=== PATIENT | female | born 1970 | race Caucasian/White ===

== ENCOUNTER 2019-07-23 14:13 | Outpatient (CLI) | payer OTHER, SELFPAY ==
[2019-07-23 16:24] LABS: Basophils Absolute Auto 0.1 K/mm3 (0.0-0.1); Basophils Percent Auto 0.7 % (0.2-1.2); Eosinophils Absolute Auto 0.2 K/mm3 (0-0.3); Eosinophils Percent Auto 2.2 % (0-4.4); Hematocrit 38.1 % (37.0-47.0); Hemoglobin 12.5 g/dL (12.0-15.0); Immature Granulocyte Absolute 0.03 K/mm3 (0.00-0.031); Immature Granulocyte Percent A 0.3 % (0-0.5); Lymphocytes Absolute Auto 3.03 K/mm3 (0.9-3.2); Lymphocytes Percent Auto 31.1 % (18.3-44.2); Mean Corpuscular HGB Conc 32.8 g/dl (32-36); Mean Corpuscular Hemoglobin 31.3 pg (26-34); Mean Corpuscular Volume 95.5 fl (80-100); Mean Platelet Volume 10.7 fl (7.4-10.4); Monocytes Absolute Auto 0.7 K/mm3 (0.1-0.6); Monocytes Percent Auto 7.2 % (2.6-8.5); Neutrophils Absolute Auto 5.7 K/mm3 (1.3-6.7); Neutrophils Percent Auto 58.5 % (45.5-73.1); Platelet Count Result 352 k/mm3 (150-375); Red Blood Count 3.99 M/mm3 (4.2-5.4); Red Cell Distribution Width 13.6 % (11.5-14.5); White Blood Count 9.8 K/mm3 (4.5-10.0)
[2019-07-23 16:34] LABS: Hemoglobin A1C 5.2 % (<5.7)
[2019-07-23 16:39] LABS: Alanine Aminotransferase 22 U/L (4-35); Albumin Level 3.6 g/dL (3.5-5.1); Alkaline Phosphatase 49 U/L (38-126); Aspartate Amino Transferase 15 U/L (14-36); Bilirubin,Total 0.2 mg/dL (0.2-1.3); Blood Urea Nitrogen 13 mg/dL (7-17); Calcium 8.3 mg/dL (8.4-10.2); Carbon Dioxide 27 mmol/L (22-30); Chloride 103 mmol/L (98-107); Estimated Glomerular Filt Rate > 60; Glucose 84 mg/dL (65-105); Potassium 3.7 mmol/L (3.4-5.0); Sodium 136 mmol/L (137-145)
[2019-07-23 16:46] LABS: Immunoglobulin A 130 mg/dL (70-400); Immunoglobulin G 499 mg/dL (700-1600)
[2019-07-23 16:58] LABS: Immunoglobulin M < 25 mg/dL (40-230)
[2019-07-23 17:09] LABS: Vitamin D 25 Hydroxy 89.5 ng/mL
== END 2019-07-23 14:14 | disposition home or self-care (01) ==
PROVIDERS: PCP Internal Medicine; Visit Provider Internal Medicine Hematology & Oncology
DX: D83.9 Common variable immunodeficiency, unspecified (principal); R53.83 Other fatigue; R73.9 Hyperglycemia, unspecified; E55.9 Vitamin D deficiency, unspecified
CPT/HCPCS: 36415; 80053; 82306; 82784; 83036; 84443; 85025

== ENCOUNTER 2019-10-28 06:32 | Outpatient (CLI) | payer OTHER, SELFPAY ==
[2019-10-28 07:27] LABS: Basophils Absolute Auto 0.1 K/mm3 (0.0-0.1); Basophils Percent Auto 0.7 % (0.2-1.2); Eosinophils Absolute Auto 0.2 K/mm3 (0-0.3); Hematocrit 42.3 % (37.0-47.0); Immature Granulocyte Absolute 0.02 K/mm3 (0.00-0.031); Immature Granulocyte Percent A 0.2 % (0-0.5); Immature Platelet Fraction Pct 3.6 % (0.9-11.2); Lymphocytes Absolute Auto 1.49 K/mm3 (0.9-3.2); Lymphocytes Percent Auto 17.6 % (18.3-44.2); Mean Corpuscular HGB Conc 33.1 g/dl (32-36); Mean Corpuscular Hemoglobin 31.7 pg (26-34); Mean Corpuscular Volume 95.7 fl (80-100); Mean Platelet Volume 10.8 fl (7.4-10.4); Monocytes Absolute Auto 0.6 K/mm3 (0.1-0.6); Monocytes Percent Auto 6.8 % (2.6-8.5); Neutrophils Absolute Auto 6.2 K/mm3 (1.3-6.7); Neutrophils Percent Auto 72.7 % (45.5-73.1); Platelet Count Result 389 k/mm3 (150-375); Red Blood Count 4.42 M/mm3 (4.2-5.4); White Blood Count 8.5 K/mm3 (4.5-10.0)
[2019-10-28 07:41] LABS: Alanine Aminotransferase 19 U/L (4-35); Albumin Level 4.1 g/dL (3.5-5.1); Alkaline Phosphatase 65 U/L (38-126); Aspartate Amino Transferase 23 U/L (14-36); Bilirubin,Total 0.7 mg/dL (0.2-1.3); Blood Urea Nitrogen 12 mg/dL (7-17); Calcium 8.8 mg/dL (8.4-10.2); Carbon Dioxide 25 mmol/L (22-30); Chloride 104 mmol/L (98-107); Estimated Glomerular Filt Rate > 60; Glucose 104 mg/dL (65-105); Potassium 3.2 mmol/L (3.4-5.0); Sodium 136 mmol/L (137-145)
[2019-10-28 07:50] LABS: Parathyroid Intact 25.4 pg/mL (7.5-53.5)
[2019-10-28 09:07] LABS: Immunoglobulin A 149 mg/dL (70-400); Immunoglobulin G 493 mg/dL (700-1600)
[2019-10-28 09:34] LABS: Immunoglobulin M < 25 mg/dL (40-230)
== END 2019-10-28 06:33 | disposition home or self-care (01) ==
PROVIDERS: PCP Internal Medicine; Visit Provider Internal Medicine Hematology & Oncology
DX: D83.9 Common variable immunodeficiency, unspecified (principal)
CPT/HCPCS: 36415; 80053; 82784; 83970; 85025; 85055

== ENCOUNTER 2020-02-10 07:45 | Outpatient (CLI) | payer OTHER, SELFPAY ==
[2020-02-10 08:26] LABS: Basophils Percent Auto 0.5 % (0.2-1.2); Eosinophils Absolute Auto 0.2 K/mm3 (0-0.3); Eosinophils Percent Auto 1.8 % (0-4.4); Hematocrit 42.4 % (37.0-47.0); Hemoglobin 14.3 g/dL (12.0-15.0); Immature Granulocyte Absolute 0.02 K/mm3 (0.00-0.031); Immature Granulocyte Percent A 0.2 % (0-0.5); Lymphocytes Absolute Auto 1.48 K/mm3 (0.9-3.2); Lymphocytes Percent Auto 18.2 % (18.3-44.2); Mean Corpuscular HGB Conc 33.7 g/dl (32-36); Mean Corpuscular Hemoglobin 32.1 pg (26-34); Mean Corpuscular Volume 95.3 fl (80-100); Mean Platelet Volume 10.5 fl (7.4-10.4); Monocytes Absolute Auto 0.6 K/mm3 (0.1-0.6); Neutrophils Absolute Auto 5.9 K/mm3 (1.3-6.7); Neutrophils Percent Auto 72.3 % (45.5-73.1); Platelet Count Result 422 k/mm3 (150-375); Red Blood Count 4.45 M/mm3 (4.2-5.4); White Blood Count 8.1 K/mm3 (4.5-10.0)
[2020-02-10 08:28] LABS: Add Urine Microscopic? NO; Appearance Urine Clear (Clear); Bilirubin Urine Negative (Negative); Blood Urine Negative (Negative); Color Urine Yellow (Yellow); Glucose Urine UA Negative (Negative); Ketones Urine Negative (Negative); Leukocyte Esterase Ur Negative LEU/UL (Negative); Nitrate Urine Negative (Negative); Protein Urine Negative (Negative); Urobilinogen Urine Negative mg/dL (<2.0)
[2020-02-10 08:43] LABS: Alanine Aminotransferase 23 U/L (4-35); Albumin Level 3.7 g/dL (3.5-5.1); Alkaline Phosphatase 60 U/L (38-126); Anion Gap 5 mmol/L (8-16); Aspartate Amino Transferase 20 U/L (14-36); Bilirubin,Total 0.2 mg/dL (0.2-1.3); Blood Urea Nitrogen 15 mg/dL (7-17); CRP 0.7 mg/dL (<1.0); Calcium 8.6 mg/dL (8.4-10.2); Carbon Dioxide 28 mmol/L (22-30); Chloride 104 mmol/L (98-107); Estimated Glomerular Filt Rate > 60; Glucose 97 mg/dL (65-105); Potassium 3.4 mmol/L (3.4-5.0); Sodium 137 mmol/L (137-145)
[2020-02-10 08:47] LABS: Immunoglobulin A 140 mg/dL (70-400); Immunoglobulin G 482 mg/dL (700-1600)
[2020-02-10 08:49] LABS: Immunoglobulin M < 25 mg/dL (40-230)
[2020-02-10 09:04] LABS: Erythrocyte Sedimentation Rate 8 mm/hr (0-20)
== END 2020-02-10 07:46 | disposition home or self-care (01) ==
PROVIDERS: PCP Internal Medicine; Referring Provider Internal Medicine Hematology & Oncology; Visit Provider Internal Medicine
DX: D83.9 Common variable immunodeficiency, unspecified (principal); M19.90 Unspecified osteoarthritis, unspecified site
CPT/HCPCS: 36415; 80053; 81003; 82784; 85025; 85652; 86140

== ENCOUNTER 2020-02-23 11:30 | Outpatient (CLI) | payer OTHER, SELFPAY ==
--- NOTE | ~2020-02-23 | MR_ITS ---
EXAMINATION: MR cervical spine wo con DATE: 02/23/2020 12:10 INDICATION: Anesthesia of skin. Neck pain. TECHNIQUE: Magnetic resonance imaging (MRI) of the cervical spine was performed without intravenous c ontrast. Sequences included sagittal T2-weighted FSE, sagittal STIR FSE, sagittal T1-weighted FSE, ax ial MERGE, and axial T2-weighted FSE. COMPARISON: None FINDINGS: There is mild kyphosis of cervical spine. Vertebral body heights are normal. There is mildl y decreased disc height at C6-C7. The spinal cord signal intensity is normal. The following disc leve ls are specifically discussed: C2-C3: The disc does not extend beyond the endplate margin. There is mild left uncovertebral joint os teoarthritis. There is mild left facet joint osteoarthritis. There is no neural foraminal stenosis. T here is no central canal stenosis. C3-C4: The disc does not extend beyond the endplate margin. There is mild bilateral uncovertebral sylvia nt osteoarthritis. There is mild left facet joint osteoarthritis. There is mild left neural foraminal stenosis. There is no central canal stenosis. C4-C5: The disc does not extend beyond the endplate margin. There is no uncovertebral joint osteoarth ritis. There is mild left facet joint osteoarthritis. There is no neural foraminal stenosis. There is no central canal stenosis. C5-C6: The disc does not extend beyond the endplate margin. There is mild left uncovertebral joint os teoarthritis. There is mild left facet joint osteoarthritis. There is mild left neural foraminal sten osis. There is no central canal stenosis. C6-C7: The disc is bulging with superimposed left central extrusion. There is severe bilateral uncove rtebral joint osteoarthritis. There is mild left facet joint osteoarthritis. There is mild bilateral neural foraminal stenosis. There is mild central canal stenosis. C7-T1: The disc does not extend beyond the endplate margin. There is no uncovertebral joint osteoarth ritis. There is mild right and moderate left facet joint osteoarthritis. There is mild left neural fo raminal stenosis. There is no central canal stenosis. IMPRESSION: 1. Mild cervical spondylosis. Reviewed, dictated and finalized at location A.
== END 2020-02-23 11:31 | disposition home or self-care (01) ==
PROVIDERS: PCP Internal Medicine; Visit Provider Internal Medicine
DX: R20.0 Anesthesia of skin (principal); R20.2 Paresthesia of skin; M47.812 Spondylosis without myelopathy or radiculopathy, cervical region
CPT/HCPCS: 72141

== ENCOUNTER 2020-04-08 15:48 | Outpatient (CLI) | payer OTHER, SELFPAY ==
[2020-04-08 16:12] LABS: Hematocrit 40.7 % (37.0-47.0); Hemoglobin 13.7 g/dL (12.0-15.0); Mean Corpuscular HGB Conc 33.7 g/dl (32-36); Mean Corpuscular Hemoglobin 31.9 pg (26-34); Mean Corpuscular Volume 94.7 fl (80-100); Mean Platelet Volume 9.9 fl (7.4-10.4); Platelet Count Result 457 k/mm3 (150-375); Red Cell Distribution Width 13.3 % (11.5-14.5)
[2020-04-08 16:24] LABS: Alanine Aminotransferase 33 U/L (4-35); Albumin Level 4.3 g/dL (3.5-5.1); Alkaline Phosphatase 61 U/L (38-126); Anion Gap 7 mmol/L (8-16); Aspartate Amino Transferase 27 U/L (14-36); Bilirubin,Total 0.3 mg/dL (0.2-1.3); Blood Urea Nitrogen 15 mg/dL (7-17); Calcium 8.6 mg/dL (8.4-10.2); Carbon Dioxide 29 mmol/L (22-30); Chloride 103 mmol/L (98-107); Estimated Glomerular Filt Rate > 60; Glucose 102 mg/dL (65-105); Potassium 3.4 mmol/L (3.4-5.0); Sodium 139 mmol/L (137-145)
[2020-04-08 16:33] LABS: Immunoglobulin A 139 mg/dL (70-400); Immunoglobulin G 568 mg/dL (700-1600)
[2020-04-08 16:35] LABS: Parathyroid Intact 41.6 pg/mL (7.5-53.5)
[2020-04-08 16:36] LABS: Eosinophils Absolute Manual 0.09 K/mm3 (0.02-0.5); Eosinophils Percent Manual 1 % (0-4); Lymphocytes Absolute Manual 2.52 K/mm3 (1.1-4.5); Monocytes Percent Manual 10 % (3-9); Neutrophils Percent Manual 61 % (46-73); Total Cells Counted 100
[2020-04-08 16:39] LABS: Atypical Lymphocytes Present
[2020-04-08 18:20] LABS: Immunoglobulin M < 25 mg/dL (40-230)
== END 2020-04-08 15:49 | disposition home or self-care (01) ==
LOC: ANHLAB 15:52
PROVIDERS: Visit Provider Internal Medicine Hematology & Oncology
DX: D83.9 Common variable immunodeficiency, unspecified (principal); E83.52 Hypercalcemia; R79.89 Other specified abnormal findings of blood chemistry
CPT/HCPCS: 36415; 80053; 82784; 83970; 85025

== ENCOUNTER 2020-06-02 13:00 | Outpatient (CLI) | payer OTHER, SELFPAY ==
[2020-06-02 13:50] LABS: Basophils Absolute Auto 0.1 K/mm3 (0.0-0.1); Basophils Percent Auto 0.5 % (0.2-1.2); Eosinophils Absolute Auto 0.2 K/mm3 (0-0.3); Eosinophils Percent Auto 2.2 % (0-4.4); Hematocrit 39.1 % (37.0-47.0); Hemoglobin 13.1 g/dL (12.0-15.0); Immature Granulocyte Absolute 0.02 K/mm3 (0.00-0.031); Immature Granulocyte Percent A 0.2 % (0-0.5); Lymphocytes Absolute Auto 2.27 K/mm3 (0.9-3.2); Lymphocytes Percent Auto 22.4 % (18.3-44.2); Mean Corpuscular HGB Conc 33.5 g/dl (32-36); Mean Corpuscular Hemoglobin 31.3 pg (26-34); Mean Corpuscular Volume 93.3 fl (80-100); Mean Platelet Volume 9.9 fl (7.4-10.4); Monocytes Absolute Auto 0.6 K/mm3 (0.1-0.6); Neutrophils Percent Auto 68.7 % (45.5-73.1); Platelet Count Result 416 k/mm3 (150-375); Red Blood Count 4.19 M/mm3 (4.2-5.4); Red Cell Distribution Width 12.6 % (11.5-14.5); White Blood Count 10.1 K/mm3 (4.5-10.0)
[2020-06-02 14:04] LABS: Alanine Aminotransferase 21 U/L (4-35); Albumin Level 3.7 g/dL (3.5-5.1); Alkaline Phosphatase 61 U/L (38-126); Anion Gap 5 mmol/L (8-16); Aspartate Amino Transferase 20 U/L (14-36); Bilirubin,Total 0.3 mg/dL (0.2-1.3); Blood Urea Nitrogen 12 mg/dL (7-17); Calcium 8.6 mg/dL (8.4-10.2); Carbon Dioxide 30 mmol/L (22-30); Chloride 102 mmol/L (98-107); Estimated Glomerular Filt Rate > 60; Glucose 122 mg/dL (65-105); Potassium 3.5 mmol/L (3.4-5.0); Sodium 137 mmol/L (137-145)
[2020-06-02 14:11] LABS: Immunoglobulin A 142 mg/dL (70-400); Immunoglobulin G 565 mg/dL (700-1600)
[2020-06-02 14:26] LABS: Immunoglobulin M < 25 mg/dL (40-230)
== END 2020-06-02 13:01 | disposition home or self-care (01) ==
PROVIDERS: PCP Internal Medicine; Visit Provider Internal Medicine Hematology & Oncology
DX: D83.9 Common variable immunodeficiency, unspecified (principal)
CPT/HCPCS: 36415; 80053; 82784; 85025

== ENCOUNTER 2020-07-23 09:54 | Emergency (ER) | payer OTHER, SELFPAY ==
[2020-07-23] VITALS (13 sets, daily range): BP systolic 133–147; BP diastolic 78–111; PULSE 78–117; RESP 14–30; TEMP 36.9; O2SAT 95–100
--- NOTE | ~2020-07-23 | XR_ITS ---
EXAMINATION: XR chest 1V portable INDICATION: Dizziness, high blood pressure TECHNIQUE: Portable AP chest at 1100 hours COMPARISON: 06/20/2017 FINDINGS: The lungs are free of acute opacities. There is no pleural effusion or pneumothorax. The ca rdiomediastinal silhouette is normal. IMPRESSION: 1. No acute cardiopulmonary abnormality. Reviewed, dictated and finalized at location A. RATING AND ASSEMBLY SUPERVISOR
--- NOTE | 2020-07-23 10:02 | ECG_ITS ---
Measurements Intervals [place] Rate: 98 P: 36 NH: 156 QRS: -23 QRSD: 89 T: 55 QT: 336 QTc: 430 Interpretive Statements SINUS RHYTHM ATRIAL PREMATURE COMPLEX BASELINE ARTIFACT- V1 BORDERLINE ECG Electronically Signed On 07-23-2020 11:07:53 SEWING MACHINE TESTER by Tr Schaffer D.O.
[2020-07-23 10:44] LABS: Add Urine Microscopic? NO; Appearance Urine Clear (Clear); Bilirubin Urine Negative (Negative); Blood Urine Negative (Negative); Color Urine Straw (Yellow); Glucose Urine UA Negative (Negative); Ketones Urine Negative (Negative); Leukocyte Esterase Ur Negative LEU/UL (Negative); Nitrate Urine Negative (Negative); Protein Urine Negative (Negative); Specific Grav Ur 1.011 (1.001-1.035); Urobilinogen Urine Negative mg/dL (<2.0)
--- NOTE | 2020-07-23 10:44 | PC.NURSE ---
Pt refuses IV access and fluids. Informed NUNU Calixto of this.
[2020-07-23 11:01] LABS: Amphetamine Screen Urine Negative (Negative); Barbiturate Screen Urine Negative (Negative); Benzodiazepines Screen Urine Negative (Negative); Cannabinoid Screen Urine Negative (Negative); Cocaine Screen Urine Negative (Negative); Methadone Screen Urine Negative (Negative); Opiate Screen Urine Negative (Negative); Phencyclidine Screen Urine Negative (Negative)
--- NOTE | 2020-07-23 11:09 | ED.GENADULT ---
HPI - General Adult General Chief complaint: Recheck/Abnormal Lab/Rx Stated complaint: mouth and jaw tingling/dizzy/lightheaded/htn Time Seen by Provider: 07/23/20 10:02 Source: patient Mode of arrival: ambulatory Limitations: no limitations History of Present Illness HPI narrative: Patient is a 49-year-old female who presents to emergency department for evaluation of feeling anxious and lightheaded patient has been trending off of her Cymbalta which is being managed by primary care patient denies any recent illness injury trauma suicidal or homicidal ideation and is otherwise in the room in no distress at this time Related Data Home Medications Medication Instructions Recorded Confirmed flaxseed oil-omega 3,6,9 1 cap PO DAILY 04/03/19 07/14/20 fluticasone propionate 2 spray INTRANASAL DAILY 04/03/19 07/14/20 norethindrone-e.estradiol-iron 1 tablet PO DAILY 04/03/19 07/14/20 [] omeprazole 20 mg PO DAILY 04/03/19 07/14/20 cholecalciferol (vitamin D3) 1,250 mcg PO WEEKLY 04/09/20 07/14/20 duloxetine 30 mg capsule,delayed 60 mg PO DAILY cap 07/14/20 07/14/20 release magnesium 250 mg tablet 250 mg PO DAILY 07/14/20 07/14/20 Allergies Allergy/AdvReac Type Severity Reaction Status Date / Time cephalexin Allergy Unknown Anaphylactic Verified 07/14/20 11:43 Shock Cephalosporins Allergy Unknown Anaphylaxis Verified 07/14/20 11:43 codeine Allergy Unknown Itching Verified 07/14/20 11:43 guaifenesin Allergy Unknown Itching Verified 07/14/20 11:43 sulfamethizole Allergy Unknown Nausea Verified 07/14/20 11:43 sulfamethoxazole Allergy Unknown Nausea and Verified 07/14/20 11:43 Vomiting trimethoprim Allergy Unknown Nausea Verified 07/14/20 11:43 clarithromycin AdvReac Intermediate Nausea/vomi Verified 07/14/20 11:43 ting Review of Systems Review of Systems: All systems reviewed & are unremarkable except as noted in HPI and below PMFSH Past Medical History Medical History (Updated 07/23/20 @ 12:39 by Janak Saul PA-C) delivery delivered Osteoarthritis Surgical History Surgical History H/O parathyroidectomy H/O tubal ligation History of cholecystectomy Family History Family History Mother Diabetes mellitus Hypertension Family history of mental disorder Depression Asthma Sibling Diabetes mellitus Depression Asthma Family history of gynecological problem Family history of mental disorder Family history of attention deficit hyperactivity disorder (ADHD) Father Family history of elevated blood lipids Family history of cardiovascular disease Family history of colonic diverticulitis Hypertension Cerebrovascular accident Grandparent Family history of malignant neoplasm of breast in first degree relative Other Family history of allergic disorder Family history of malignant neoplasm Social History Social History Smoking status: Never smoker Second hand tobacco smoke exposure: Yes Smoking end date: 06/12/11 Alcohol intake: never Exam Narrative: Exam Narrative: GENERAL: Well-appearing, well-nourished, and in no acute distress. HEAD: Normocephalic, atraumatic. EYES: PERRLA and EOMI. ENT: Nares clear, no rhinorrhea or epistaxis. Mucous membranes moist. CHEST: Clear to auscultation. No respiratory distress. No wheezes rales or rhonchi HEART: Regular rate and rhythm. No murmur heard. Normal peripheral pulses. ABDOMEN: Soft, nontender, nondistended EXTREMITIES: Normal range of motion. No edema. SKIN: Warm, dry, no rash. NEURO: No focal deficits. Alert and oriented x3. PSYCH: Normal mood and affect. Course Course Emergency Course: Patient evaluated in the emergency department no high risk changes in the imaging or evaluation felt appropriate for outpatient reevaluation afebrile
[2020-07-23] MEDS: ONDANSETRON HCL ODT 4 MG TABLET PO (11:20)
[2020-07-23] MEDS: ACETAMINOPHEN 325 MG TABLET 650 MG PO (11:20)
[2020-07-23] MEDS: LORazepam (*CRX) 1 MG TABLET PO (11:20)
[2020-07-23 11:28] LABS: Basophils Percent Auto 0.2 % (0.2-1.2); Eosinophils Absolute Auto 0.1 K/mm3 (0-0.3); Eosinophils Percent Auto 0.9 % (0-4.4); Hematocrit 40.1 % (37.0-47.0); Hemoglobin 13.6 g/dL (12.0-15.0); Immature Granulocyte Absolute 0.02 K/mm3 (0.00-0.031); Immature Granulocyte Percent A 0.2 % (0-0.5); Lymphocytes Percent Auto 23.6 % (18.3-44.2); Mean Corpuscular HGB Conc 33.9 g/dl (32-36); Mean Corpuscular Hemoglobin 31.4 pg (26-34); Mean Corpuscular Volume 92.6 fl (80-100); Mean Platelet Volume 9.8 fl (7.4-10.4); Monocytes Absolute Auto 0.5 K/mm3 (0.1-0.6); Monocytes Percent Auto 5.9 % (2.6-8.5); Neutrophils Absolute Auto 5.9 K/mm3 (1.3-6.7); Neutrophils Percent Auto 69.2 % (45.5-73.1); Platelet Count Result 420 k/mm3 (150-375); Red Blood Count 4.33 M/mm3 (4.2-5.4); Red Cell Distribution Width 13.2 % (11.5-14.5); White Blood Count 8.5 K/mm3 (4.5-10.0)
[2020-07-23 11:38] LABS: INR 0.8
[2020-07-23 11:39] LABS: Partial Thromboplastin Time 38.1 SECONDS (22.3-36.8)
[2020-07-23 11:46] LABS: Alanine Aminotransferase 17 U/L (4-35); Albumin Level 3.9 g/dL (3.5-5.1); Alkaline Phosphatase 66 U/L (38-126); Anion Gap 5 mmol/L (8-16); Aspartate Amino Transferase 20 U/L (14-36); Bilirubin,Total 0.3 mg/dL (0.2-1.3); Blood Urea Nitrogen 10 mg/dL (7-17); Calcium 8.9 mg/dL (8.4-10.2); Carbon Dioxide 26 mmol/L (22-30); Chloride 105 mmol/L (98-107); Estimated CRCL calculation 93 ml/min; Estimated Glomerular Filt Rate > 60; Glucose 123 mg/dL (65-105); Lipase 84 U/L (23-300); Potassium 3.4 mmol/L (3.4-5.0); Sodium 136 mmol/L (137-145)
[2020-07-23 11:57] LABS: NT Pro B Type Natriuretic Pept 50 PG/ML (5-100); Troponin I < 0.012 ng/mL (0.000-0.034)
== END 2020-07-23 13:16 | disposition home or self-care (01) ==
PROVIDERS: Emergency Medicine Emergency Medical Services; Emergency Provider Emergency Medicine; PCP Internal Medicine
DX: R42 Dizziness and giddiness (principal); M19.90 Unspecified osteoarthritis, unspecified site; E89.2 Postprocedural hypoparathyroidism; Z77.22 Contact with and (suspected) exposure to environmental tobacco smoke (acute) (chronic); I49.1 Atrial premature depolarization
CPT/HCPCS: 36415; 71045; 80053; 80307; 81003; 83690; 83880; 84484; 85025; 85610; 85730; 93005; 99284; A9270

== ENCOUNTER 2020-08-11 13:45 | Emergency (ER) | payer OTHER, SELFPAY ==
--- NOTE | ~2020-08-11 | XR_ITS ---
EXAMINATION: XR chest 2V DATE: 08/11/2020 14:06 INDICATION: Chest tightness. TECHNIQUE: Frontal and lateral views of the chest were obtained. COMPARISON: Chest single view 07/23/2020 FINDINGS: The chest demonstrates clear lungs without pneumonia, pleural effusion, or pneumothorax. Th e heart size is normal. There are surgical clips in the neck and in the right upper quadrant of the a bdomen. IMPRESSION: 1. No acute cardiopulmonary disease. Reviewed, dictated and finalized at location A. OR MARKET RESEARCH ANALYST
[2020-08-11 13:48] VITALS: BP 137/84; PULSE 84; RESP 17; TEMP 36.4; O2SAT 100
[2020-08-11 13:53] VITALS: PULSE 78
--- NOTE | 2020-08-11 13:54 | ECG_ITS ---
Measurements Intervals [place] Rate: 77 P: -10 TN: 158 QRS: -4 QRSD: 90 T: 35 QT: 357 QTc: 405 Interpretive Statements SINUS RHYTHM VOLTAGE CRITERIA FOR LVH BASELINE ARTIFACT- II, III, AVR, AVL, AVF BORDERLINE ECG Electronically Signed On 08-11-2020 14:42:37 PIZZAMAKER by Tr Schaffer D.O.
[2020-08-11 14:08] LABS: Basophils Percent Auto 0.5 % (0.2-1.2); Eosinophils Absolute Auto 0.2 K/mm3 (0-0.3); Hemoglobin 13.7 g/dL (12.0-15.0); Immature Granulocyte Absolute 0.02 K/mm3 (0.00-0.031); Immature Granulocyte Percent A 0.2 % (0-0.5); Lymphocytes Absolute Auto 2.24 K/mm3 (0.9-3.2); Lymphocytes Percent Auto 25.8 % (18.3-44.2); Mean Corpuscular HGB Conc 33.4 g/dl (32-36); Mean Corpuscular Hemoglobin 31.8 pg (26-34); Mean Corpuscular Volume 95.1 fl (80-100); Mean Platelet Volume 9.9 fl (7.4-10.4); Monocytes Absolute Auto 0.7 K/mm3 (0.1-0.6); Monocytes Percent Auto 7.8 % (2.6-8.5); Neutrophils Absolute Auto 5.5 K/mm3 (1.3-6.7); Neutrophils Percent Auto 63.7 % (45.5-73.1); Platelet Count Result 443 k/mm3 (150-375); Red Blood Count 4.31 M/mm3 (4.2-5.4); Red Cell Distribution Width 13.5 % (11.5-14.5); White Blood Count 8.7 K/mm3 (4.5-10.0)
[2020-08-11 14:17] LABS: INR 0.9; Prothrombin Time 12.5 Seconds (11.1-14.7)
[2020-08-11 14:18] LABS: Partial Thromboplastin Time 40.3 SECONDS (22.3-36.8)
[2020-08-11] MEDS: EPINEPHrine HCL INJ 1 MG/ML AMPUL 0.3 MG IM (14:18)
[2020-08-11] MEDS: FAMOTIDINE 20 MG/2 ML VIAL IV PUSH (14:19)
[2020-08-11] MEDS: diphenhydrAMINE HCl INJ 50 MG/ML VIAL IV PUSH (14:19)
[2020-08-11] MEDS: methylPREDNISolone SOD SUCC 125 MG VIAL IV PUSH (14:19)
--- NOTE | 2020-08-11 14:19 | ED.CHESTPAIN ---
HPI - Chest Pain General Chief Complaint: Chest Pain Stated Complaint: covid vaccine, tight throat and chest, vocal coreas Time Seen by Provider: 08/11/20 13:55 Source: patient Mode of arrival: ambulatory Limitations: no limitations History of Present Illness HPI narrative: This is a 49 year old female with history of hypertension, fibromyalgia, Sjogren's who presents for evaluation of possible allergic reaction. She received her second COVID vaccine 2 hours ago. She states 30 minutes ago she developed pain with swallowing and some chest tightness. She also reports nausea and itching behind her ears. She denies lips swelling. She reports her tongue feels abnormal. She also reports she feels short of breath. She is allergic to mushrooms but she does not think she was exposed. She ate [employer] chicken from the cafeteria. She reports coughing . She used her albuterol inhaler without improvement. She has not taken any other medications. Related Data Home Medications Medication Instructions Recorded Confirmed flaxseed oil-omega 3,6,9 1 cap PO DAILY 04/03/19 07/14/20 fluticasone propionate 2 spray INTRANASAL DAILY 04/03/19 07/14/20 norethindrone-e.estradiol-iron 1 tablet PO DAILY 04/03/19 07/14/20 [] omeprazole 20 mg PO DAILY 04/03/19 07/14/20 cholecalciferol (vitamin D3) 1,250 mcg PO WEEKLY 04/09/20 07/14/20 duloxetine 30 mg capsule,delayed 60 mg PO DAILY cap 07/14/20 07/14/20 release magnesium 250 mg tablet 250 mg PO DAILY 07/14/20 07/14/20 Allergies Allergy/AdvReac Type Severity Reaction Status Date / Time cephalexin Allergy Unknown Anaphylactic Verified 08/11/20 13:56 Shock Cephalosporins Allergy Unknown Anaphylaxis Verified 08/11/20 13:56 codeine Allergy Unknown Itching Verified 08/11/20 13:56 guaifenesin Allergy Unknown Itching Verified 08/11/20 13:56 sulfamethizole Allergy Unknown Nausea Verified 08/11/20 13:56 sulfamethoxazole Allergy Unknown Nausea and Verified 08/11/20 13:56 Vomiting trimethoprim Allergy Unknown Nausea Verified 08/11/20 13:56 clarithromycin AdvReac Intermediate Nausea/vomi Verified 08/11/20 13:56 ting Review of Systems Review of Systems: All systems reviewed & are unremarkable except as noted in HPI and below PMFSH Past Medical History Medical History (Updated 08/11/20 @ 17:45 by Genie Ann MD) delivery delivered Osteoarthritis Surgical History Surgical History H/O parathyroidectomy H/O tubal ligation History of cholecystectomy Family History Family History Mother Diabetes mellitus Hypertension Family history of mental disorder Depression Asthma Sibling Diabetes mellitus Depression Asthma Family history of gynecological problem Family history of mental disorder Family history of attention deficit hyperactivity disorder (ADHD) Father Family history of elevated blood lipids Family history of cardiovascular disease Family history of colonic diverticulitis Hypertension Cerebrovascular accident Grandparent Family history of malignant neoplasm of breast in first degree relative Other Family history of allergic disorder Family history of malignant neoplasm Social History Social History Smoking status: Never smoker Second hand tobacco smoke exposure: Yes Smoking end date: 06/12/11 Alcohol intake: never Gender identity (if verbalized by the patient): Female Exam Const: General: no acute distress and alert Orientation/consciousness: patient oriented x3 HENMT: Head: normocephalic and atraumatic Ears: TM's normal bilaterally Face and sinus: normal facial exam, sinuses nontender and face symmetric Mouth: Yes Normal oral and palatal mucosa present, Yes tongue normal, Yes oropharynx normal, Yes moist mucous membranes and Ye
[2020-08-11 14:21] LABS: Anion Gap 6 mmol/L (8-16); Blood Urea Nitrogen 11 mg/dL (7-17); Calcium 9.2 mg/dL (8.4-10.2); Carbon Dioxide 29 mmol/L (22-30); Chloride 104 mmol/L (98-107); Estimated CRCL calculation 78 ml/min; Estimated Glomerular Filt Rate > 60; Glucose 69 mg/dL (65-105); Potassium 3.3 mmol/L (3.4-5.0); Sodium 139 mmol/L (137-145)
[2020-08-11 14:33] LABS: Troponin I < 0.012 ng/mL (0.000-0.034)
[2020-08-11 15:39] VITALS: BP 121/73; PULSE 78; RESP 18; O2SAT 100
[2020-08-11] MEDS: ONDANSETRON INJ 4 MG/2 ML VIAL IV PUSH (16:25)
[2020-08-11 17:37] LABS: Troponin I < 0.012 ng/mL (0.000-0.034)
[2020-08-11 17:56] VITALS: BP 129/65; PULSE 97; RESP 24; O2SAT 99
== END 2020-08-11 17:59 | disposition home or self-care (01) ==
PROVIDERS: Emergency Medicine; Emergency Provider General Practice; PCP Internal Medicine
DX: R07.89 Other chest pain (principal); I10 Essential (primary) hypertension; M79.7 Fibromyalgia; M35.00 Sjogren syndrome, unspecified; M19.90 Unspecified osteoarthritis, unspecified site; E89.2 Postprocedural hypoparathyroidism; R94.31 Abnormal electrocardiogram [ECG] [EKG]
CPT/HCPCS: 36415; 71046; 80048; 84484; 85025; 85380; 85610; 85730; 93005; 96372; 96374; 96375; 99284; J0171; J1200; J2405; J2930

== ENCOUNTER 2020-09-07 17:42 | Emergency (ER) | payer OTHER, SELFPAY ==
[2020-09-07 18:28] VITALS: BP 142/80; PULSE 92; RESP 16; TEMP 36.4; O2SAT 97
--- NOTE | 2020-09-07 22:50 | PC.NURSE ---
PT called multiple times for registration and not found in [facility]. Pt called by charge nurse for room placement and not found in [facility].
== END 2020-09-07 22:50 | disposition left against medical advice (07) ==
LOC: ANHED 09-08 00:45
PROVIDERS: PCP Internal Medicine
DX: M54.5 Low back pain (principal)
CPT/HCPCS: 99199

== ENCOUNTER → 2021-05-05 01:47 | Outpatient (CLI) | payer OTHER, SELFPAY ==
[2021-05-05 18:14] LABS: SARS-CoV-2 RNA PCR Negative
== END ==
PROVIDERS: PCP Internal Medicine; Visit Provider Internal Medicine
DX: Z20.822 Contact with and (suspected) exposure to COVID-19 (principal)
CPT/HCPCS: C9803; U0003; U0005

== ENCOUNTER → 2021-06-25 00:51 | Outpatient (CLI) | payer OTHER, SELFPAY ==
[2021-06-25 13:12] LABS: SARS-CoV-2 RNA PCR Negative
== END ==
PROVIDERS: PCP Internal Medicine; Visit Provider Internal Medicine
DX: Z20.822 Contact with and (suspected) exposure to COVID-19 (principal)
CPT/HCPCS: C9803; U0003; U0005

== ENCOUNTER 2021-10-25 12:01 | Outpatient (CLI) | payer BC, SELFPAY ==
[2021-10-25 12:26] LABS: Basophils Absolute Auto 0.04 K/mm3 (0.00-0.10); Basophils Percent Auto 0.6 % (0.0-1.0); Eosinophils Absolute Auto 0.07 K/mm3 (0.02-0.50); Hematocrit 41.5 % (35.0-49.0); Hemoglobin 14.1 g/dL (12.0-15.0); Immature Granulocyte Absolute 0.02 K/mm3 (0.00-0.00); Immature Granulocyte Percent A 0.3 % (0.0-0.0); Lymphocytes Absolute Auto 1.85 K/mm3 (1.10-4.50); Mean Corpuscular Hemoglobin 31.5 pg (27.0-31.0); Mean Corpuscular Volume 92.8 fL (78.0-102.0); Mean Platelet Volume 10.3 fl (9.2-11.8); Monocytes Absolute Auto 0.45 K/mm3 (0.10-0.90); Monocytes Percent Auto 6.3 % (2.0-11.0); Neutrophils Absolute Auto 4.7 K/mm3 (1.7-7.2); Neutrophils Percent Auto 65.8 % (50.0-70.0); Platelet Count Result 414 K/mm3 (150-420); Red Blood Count 4.47 M/mm3 (4.20-5.40); Red Cell Distribution Width 12.2 % (11.6-14.4); White Blood Count 7.1 K/mm3 (4.8-10.8)
[2021-10-25 12:53] LABS: Hemoglobin A1C 5.8 % (<5.7)
[2021-10-25 13:05] LABS: Alanine Aminotransferase 14 U/L (14-59); Albumin Level 3.5 g/dL (3.4-5.0); Alkaline Phosphatase 78 U/L (46-116); Anion Gap 6 mmol/L (8-16); Aspartate Amino Transferase 14 U/L (15-37); Bilirubin,Total 0.2 mg/dL (0.00-1.00); Blood Urea Nitrogen 12 mg/dL (7-18); Carbon Dioxide 32 mmol/L (21-32); Chloride 102 mmol/L (98-108); Cholesterol 282 mg/dL (0-200); Estimated Glomerular Filt Rate > 60; Folic Acid 19.1 ng/mL (8.6->20); Glucose 74 mg/dL (70-99); HDL Direct 58 mg/dL (40-60); LDL Cholesterol Calculated 199 mg/dL (<130); Osmolality Calculated 288 mOsm/kg (285-295); Potassium 3.1 mmol/L (3.5-5.1); Sodium 140 mmol/L (136-145); Thyroid Stimulating Hormone 1.24 uIU/mL (0.36-3.74); Total Protein 7.1 g/dL (6.4-8.2); Triglycerides 125 mg/dL (0-150); Vitamin B12 247 pg/mL (193-986)
[2021-10-27 14:05] LABS: Vitamin D 25 Hydroxy 86 ng/mL (30-100)
[2021-10-28 03:47] LABS: Parathyroid Intact 20 pg/mL (14-64)
[2021-10-28 14:32] LABS: Immunoglobulin A 181 mg/dL (47-310); Immunoglobulin G 597 mg/dL (600-1640); Immunoglobulin M 38 mg/dL (50-300)
== END 2021-10-25 12:02 | disposition home or self-care (01) ==
LOC: CHSLAB 12:06
PROVIDERS: PCP Nurse Practitioner Family; Visit Provider Nurse Practitioner Family
DX: E55.9 Vitamin D deficiency, unspecified (principal); E53.8 Deficiency of other specified B group vitamins; Z86.39 Personal history of other endocrine, nutritional and metabolic disease; E78.5 Hyperlipidemia, unspecified; E88.81 Metabolic syndrome and other insulin resistance; M35.00 Sjogren syndrome, unspecified
CPT/HCPCS: 36415; 80053; 80061; 82306; 82607; 82746; 82784; 83036; 83970; 84443; 85025

== ENCOUNTER 2022-01-31 13:42 | Outpatient (NON) | payer BC, SELFPAY | END 2022-01-31 13:43 | disposition home or self-care (01) | LOC: CHSLAB 13:43 | PROVIDERS: Visit Provider Nurse Practitioner Family | DX: Z12.4 Encounter for screening for malignant neoplasm of cervix (principal) | CPT/HCPCS: 88175; G0145 ==

== ENCOUNTER 2022-09-03 09:40 | Emergency (ER) | payer BC, SELFPAY ==
--- NOTE | 2022-09-03 09:57 | ED.GENADULT ---
HPI - General Adult General Chief complaint: Urogenital-Female Stated complaint: uti Source: patient and RN notes reviewed History of Present Illness HPI narrative: 51-year-old female presents urgent care with complaints of urinary frequency, urinary urgency, burning with urination, and fever. Patient states symptoms started night and then just gotten worse. Patient reports mid lower abdominal bloating and pressure. Patient states she had slight lower back pain yesterday but does not know if that is new or chronic. Patient states she took 2 amoxicillin 875 mg pills last night she had left over from a dental infection. Denies any vomiting, diarrhea, chest pain, shortness of breath. Some parts of this dictation were generated by voice recognition software and may contain typographical and/or grammatical inaccuracies. Related Data Home Medications Medication Instructions Recorded Confirmed flaxseed oil 1,300 mg-omega 3,6,9 1 cap PO DAILY 04/03/19 01/31/22 845 mg-117 mg-117 mg capsule fluticasone propionate 50 2 spray intranasal DAILY 04/03/19 09/03/22 mcg/actuation nasal spray,suspension omeprazole 20 mg capsule,delayed 20 mg PO DAILY 04/03/19 09/03/22 release cholecalciferol (vitamin D3) 1,250 1,250 mcg PO WEEKLY 04/09/20 09/03/22 mcg (50,000 unit) tablet cetirizine 10 mg capsule (Allergy 10 mg PO DAILY PRN Allergy Symptoms 10/25/21 09/03/22 Relief (cetirizine)) Allergies Allergy/AdvReac Type Severity Reaction Status Date / Time cephalexin Allergy Unknown Anaphylactic Verified 09/03/22 10:08 Shock Cephalosporins Allergy Unknown Anaphylaxis Verified 09/03/22 10:08 codeine Allergy Unknown Itching Verified 09/03/22 10:08 guaifenesin Allergy Unknown Itching Verified 09/03/22 10:08 sulfamethizole Allergy Unknown Nausea Verified 09/03/22 10:08 sulfamethoxazole Allergy Unknown Nausea and Verified 09/03/22 10:08 Vomiting trimethoprim Allergy Unknown Nausea Verified 09/03/22 10:08 clarithromycin AdvReac Intermediate Nausea/vomi Verified 08/03/22 09:00 ting Review of Systems Review of Systems: Pertinent positives and pertinent negatives per HPI. PMFSH Past Medical History Medical History delivery delivered Close exposure to COVID-19 virus Fatigue Flu-like symptoms Low back pain Osteoarthritis Screening for breast cancer Shift work sleep disorder Surgical History Surgical History H/O parathyroidectomy (~05/2018) H/O tubal ligation (~06/2011) History of cholecystectomy Family History Family History Mother Diabetes mellitus Hypertension Family history of mental disorder Depression Asthma Sibling Diabetes mellitus Depression Asthma Family history of gynecological problem Family history of mental disorder Family history of attention deficit hyperactivity disorder (ADHD) Father Family history of elevated blood lipids Family history of cardiovascular disease Family history of colonic diverticulitis Hypertension Cerebrovascular accident Grandparent Family history of malignant neoplasm of breast in first degree relative Other Family history of allergic disorder Family history of malignant neoplasm Social History Social History Smoking packs per day: 0.25 Smoking cigarettes per day: 5.0 Years smoked: 25 Smoking pack-years: 6.25 Smoking status: Former smoker Tobacco type: cigarettes Second hand tobacco smoke exposure: Yes Smoking end date: 06/12/11 Alcohol intake: never Substance use: never Substance use type: does not use Gender identity (if verbalized by the patient): Female Comments At the time of my signature, I reviewed and agree with the nursing past medical, surgical, social, and famil
[2022-09-03 10:13] VITALS: BP 136/90; PULSE 104; RESP 16; TEMP 36.9; O2SAT 98
== END 2022-09-03 10:31 | disposition home or self-care (01) ==
PROVIDERS: Emergency Provider Nurse Practitioner Family; PCP Nurse Practitioner Family
DX: N39.0 Urinary tract infection, site not specified (principal); Z87.891 Personal history of nicotine dependence; M19.90 Unspecified osteoarthritis, unspecified site
CPT/HCPCS: 81003; 87086; 99213; G0463

== ENCOUNTER 2024-09-08 20:16 | Emergency (ER) | payer BC, SELFPAY ==
--- NOTE | ~2024-09-08 | CT_ITS ---
CT of the Abdomen and Pelvis: Indication: Abdominal pain Technique: 2.5 mm axial scans were obtained through the abdomen and pelvis following intravenous adm inistration of 100 cc of Omnipaque 350. Dose reduction technique was used on this scan by utilizing a utomated exposure control and iterative reconstruction technique. The dose-length product (DLP) was 9 98.15 mGy-cm. Findings: Scans through the lung bases are unremarkable. The liver, spleen, pancreas, adrenals and kidneys are within normal limits. Cholecystectomy clips are present. There are atherosclerotic calcifications of the aorta. No lymphadenopathy. There is wall thickening and mild pericolonic inflammatory change involving the distal descending col on and proximal to mid sigmoid colon. No bowel obstruction. No abscess or free air. Images through the pelvis were performed. Uterine fibroid noted. Urinary bladder unremarkable. No pel patito mass seen otherwise. Trace ascites noted. Bilateral L5 pars interarticularis defects are noted. Impression: Colitis versus diverticulitis involving the distal descending colon and proximal to mid sigmoid colon . No bowel obstruction. No abscess or free air. Uterine fibroid. Reviewed, dictated and finalized at [facility]. Impression: Colitis versus diverticulitis involving the distal descending colon and proxima l to mid sigmoid colon. No bowel obstruction. No abscess or free air. Uterine fibroid.
--- OUTSIDE RECORDS SUMMARY | 2024-09-08 20:19 | XMS_ITS | Data Portability ---
Author Organization [facility] MARIBEL[facility]unu Address [address] [place] [address] Assessment No assessment recorded. Plan of Treatment Reminders Order Date Submit Date Provider Last Modified By Organization Details Last Modified Time Details Appointments None recorded. Lab pap, IG + HPV, cervical 2017 018 [facility], [address], [address] [address], [place], [address], 8 06:05:35 bacterial vaginosis + vaginitis panel, vaginal 2016 017 [facility], [facility] [facility], [address], [place], [address], 7 07:13:20 HSV (1+2) DNA, qual, PCR, unspecifi ed specimen 2016 017 [facility], [address] [place] [address], [address], [place], [address], 7 07:13:20 culture, vaginal/r ectal, streptoco ccus group B 2016 017 [facility], [address] [place] [address], [address], [place], [address], 7 07:13:21 pap, IG + HPV, cervical 2016 017 [facility], [address] [place] [address], [address], [place], [address], 7 10:36:38 urinalysi s, dipstick 2016 017 amber In-Office Order, Internal Use Only DO Not Attach Compendium DO Not Attach Compendium, Do Not Delete/merge, [id number] 7 14:51:44 TSH, serum or plasma 2014 015 [facility], [address] [facility], [address], [place], [address], 5 06:26:51 urinalysi s, dipstick 2014 015 amber In-Office Order, Internal Use Only DO Not Attach Compendium DO Not Attach Compendium, Do Not Delete/merge, [id number] 5 19:29:03 pap, IG + HPV, cervical 2014 015 [facility], [address] [facility], [address], [place], [address], 5 20:13:05 Referral colonosco py referral 2017 018 [email or web address] Not available 8 15:24:38 psychiatr ist referral - pt reports anxiety and insomnia, would like medicatio n 2014 015 [facility], [address] [place] [address], [address], 5 11:09:57 Procedures None recorded. Surgeries None recorded. Imaging MAMMO, screening , bilateral 2017 018 [facility], [address], [address], [address], 8 12:00:41 DEXA, axial skeleton [address] [facility], [address], [place], [address], 8 13:04:27 MAMMO, screening , bilateral 2016 017 [facility], [address], [address], [place], [address], 7 14:09:17 mammogram , screening 2014 015 [facility] ([facility]), [address], [place], [address], 5 10:13:07 Medication Orders valacyclo vir 1 gram tablet 2017 018 [facility], [address] , [place], [address], 8 13:00:05 Lo Loestrin Fe 1 mg-10 mcg (24)/10 mcg (2) tablet 2017 018 [email or web address] [facility], [address], [place], [address], 8 14:41:54 calcium 600 mg (as carbonate )-vitamin D3 20 mcg (800 unit) tablet 2017 018 [facility], [address] [place], [address], 8 12:48:31 multivita min tablet 2017 018 [facility], [address] , [place], [address], 8 12:48:32 lisinopri l 20 mg-hydroc hlorothia zide 12.5 mg tablet 2016 017 INTERFACE [facility], [address] [place], [address], 7 13:15:35 nystatin 100,000 unit/gram topical cream 2016 017 INTERFACE [facility], [address] [place], [address], 7 13:13:00 terconazo le 0.8 % vaginal cream 2016 017 [email or web address] [facility], [address] [place], [address], 8 12:36:53 valacyclo vir 1 gram tablet 2016 017 INTERFACE [facility] [address], [address] [place], [address], 7 13:15:37 Linzess 145 mcg capsule 2014 015 [email or web address] [facility], [address] [place] [address], [address], 8 12:35:19 Linzess 145 mcg capsule 2014 015 [email or web address] Not available 8 12:35:19 Patient TargetsNo targets recorded. Patient Instructions Encounter Date Encounter Id Patient Instructions Last Modified By Organization Details Last Modified Time 03/05/2015 [id number] [facility] about [facility] Not available 03/05/2015 19:22:30 anxiety disorder: care instructions [email or web address] Not available 03/06/2015 09:21:52 learning about anxiety disorders Not available 03/06/2015 09:21:57 07/18/2016 [id number] mammogram: about this test [email or web address] Not available 07/18/2016 14:51:44 candidiasis: care instructions [email or web address] Not available 07/18/2016 14:51:44 09/26/2017 [id number] mammogram: about this test [email or web address] Not available 09/26/2017 14:41:54 Reason for Referral Psychiatrist Referral for An xiety disorder pt reports anxiety and insomnia, would like medication Referring Physician: Jordan Leger, PROCESS SAFETY MANAGER, Encounter Date: 03/05/2015 Colonoscopy Referral for Scr eening for malignant neoplasm of colon FH colon malignancy Referring Physician: Jordan Leger, PROCESS SAFETY MANAGER, Encounter Date: 09/26/2017 Results Created Date Observation Date Name Description Value Unit Range Abnormal Flag Note LastModifiedBy Organization Detail LastModifiedTime 07/18/19 17 07/18/2016 urina lysis , dipst ick Leukocytes Negati ve Not Available In-Office Order Internal Use Only DO Not Attach Compendium DO Not Attach Compendium, Do Not Delete/merge, [id number] 07/18/2016 12:55:07/18/19 17 07/18/2016 urina lysis , dipst ick Nitrite negati ve Not Available In-Office Order Internal Use Only DO Not Attach Compendium DO Not Attach Compendium, Do Not Delete/merge, 07/18/2016 12:55:09 07/18/19 17 07/18/2016 urina lysis , dipst ick Urobilinogen .2 Not Available In-Of fice Order Internal Use Only DO Not Attach Compendium DO Not Attach Compendium, Do Not Delete/merge, 07/18/2016 12:55:09 07/18/19 17 07/18/2016 urina lysis , dipst ick Protein Negati ve Not Available In-Office Order Internal Use Only DO Not Attach Compendium DO Not Attach Compendium, Do Not Delete/merge, 07/18/2016 12:55:09 07/18/19 17 07/18/2016 urina lysis , dipst ick pH 6.0 Not Available In-Office Order Internal Use Only DO Not Attach Compendium DO Not Attach Compendium, Do Not Delete/merge, 07/18/2016 12:55:07/18/19 17 07/18/2016 urina lysis , dipst ick Blood Negati ve Not Available In-Office Order Internal Use Only DO Not Attach Compendium DO Not Attach Compendium, Do Not Delete/merge, 07/18/2016 12:55:07/18/19 17 07/18/2016 urina lysis , dipst ick Specific Lovell 1.010 Not Available In-Off ice Order Internal Use Only DO Not Attach Compendium DO Not Attach Compendium, Do Not Delete/merge, [id number] 07/18/2016 12:55:07/18/19 17 07/18/2016 urina lysis , dipst ick Ketone Negati ve Not Available In-Office Order Internal Use Only DO Not Attach Compendium DO Not Attach Compendium, Do Not Delete/merge, [id number] 07/18/2016 12:55:07/18/19 17 07/18/2016 urina lysis , dipst ick Bilirubin Negati ve Not Available In-Office Order Internal Use Only DO Not Attach Compendium DO Not Attach Compendium, Do Not Delete/merge, [id number] 07/18/2016 12:55:07/18/19 17 07/18/2016 urina lysis , dipst ick Glucose Negati ve Not Available In-Office Order Internal Use Only DO Not Attach Compendium DO Not Attach Compendium, Do Not Delete/merge, 07/18/2016 12:55:03/05/20 15 03/05/2015 urina lysis , dipst ick Leukocytes Negati ve Not Available In-Office Order Internal Use Only DO Not Attach Compendium DO Not Attach Compendium, Do Not Delete/merge, 03/05/2015 16:43:01 03/05/2003/05/2015 urina lysis , dipst ick Nitrite negati ve Not Available In-Office Order Internal Use Only DO Not Attach Compendium DO Not Attach Compendium, Do Not Delete/merge, 03/05/2015 16:43:01 03/05/20 15 03/05/2015 urina lysis , dipst ick Urobilinogen .2 Not Available In-Of fice Order Internal Use Only DO Not Attach Compendium DO Not Attach Compendium, Do Not Delete/merge, 03/05/2015 16:43:01 03/05/2003/05/2015 urina lysis , dipst ick Protein Negati ve Not Available In-Office Order Internal Use Only DO Not Attach Compendium DO Not Attach Compendium, Do Not Delete/merge, 03/05/2015 16:43:01 03/05/2003/05/2015 urina lysis , dipst ick pH 7.0 Not Available In-Office Order Internal Use Only DO Not Attach Compendium DO Not Attach Compendium, Do Not Delete/merge, 03/05/2015 16:43:01 03/05/20 15 03/05/2015 urina lysis , dipst ick Blood Non-He molyze d: Trace Not Available In-Office Order Internal Use Only DO Not Attach Compendium DO Not Attach Compendium, Do Not Delete/merge, 03/05/2015 16:43:01 03/05/20 15 03/05/2015 urina lysis , dipst ick Specific Lovell 1.015 Not Available In-Off ice Order Internal Use Only DO Not Attach Compendium DO Not Attach Compendium, Do Not Delete/merge, 03/05/2015 16:43:01 03/05/2003/05/2015 urina lysis , dipst ick Ketone Negati ve Not Available In-Office Order Internal Use Only DO Not Attach Compendium DO Not Attach Compendium, Do Not Delete/merge, 03/05/2015 16:43:01 03/05/20 15 03/05/2015 urina lysis , dipst ick Bilirubin Negati ve Not Available In-Office Order Internal Use Only DO Not Attach Compendium DO Not Attach Compendium, Do Not Delete/merge, 03/05/2015 16:43:01 03/05/2003/05/2015 urina lysis , dipst ick Glucose Negati ve Not Available In-Office Order Internal Use Only DO Not Attach Compendium DO Not Attach Compendium, Do Not Delete/merge, 03/05/2015 16:43:01 03/05/20 15 03/06/2015 TSH, serum or plasm a TSH 1.060 uIU/m L 0.450- 4.500 Not Available [facility] ([facility]) [address], [place], [address], 03/06/2015 06:26:50 03/05/20 15 03/10/2015 pap, IG + HPV, cervi jennifer HPV aptima NEGATI VE negati ve THIS TEST DETEC TS FOURT EEN HIGH- RISK HPV TYPES (16/1 8/31/ 33/35 /39/4 5/ 51/52 /56/5 8/59/ 66/68 ) WITHO UT JAVANE VENKATA ATION . Not Available [facility] ([facility]) [address] [facility], [place], [address], 03/12/2015 20:13:05 03/05/20 15 03/12/2015 pap, IG + HPV, cervi jennifer diagnosis: COMMCONOR SILVER FOR INTRA EPITH ELIAL CHIRAG N AND EDER BACA . THIS SPECI MEN WAS RESCR EENED PART OF OUR QUALI TY CONTR OL PROGR AM. Not Available [facility] ([facility]) [address] [facility], [place], [address], 03/12/2015 20:13:05 03/05/20 15 03/12/2015 pap, IG + HPV, cervi jennifer specimen adequacy: YAA Delcid SATIS FACTO RY FOR EVALU ATION . ENDOC ERVIC AL AND/O R SQUAM OUS METAP LASTI C CELLS (ENDO CERVI JENNIFER COMPO NENT) ARE PRESE NT. Not Available [facility] ([facility]) [address] [facility], [place], [address], 03/12/2015 20:13:05 03/05/20 15 03/12/2015 pap, IG + HPV, cervi jennifer performed by: YAA LEMUS ON, CYTOT ECHNO LOGIS T (ASCP ) Not Available [facility] ([facility]) [address] [place], [address], 03/12/2015 20:13:05 03/05/20 15 03/12/2015 pap, IG + HPV, cervi jennifer QC reviewed by: YAA GREENBERG NS, CYTOT ECHNO LOGIS T (ASCP ) Not Available [facility] ([facility]) [address] [place], [address], 03/12/2015 20:13:05 03/05/20 15 03/12/2015 pap, IG + HPV, cervi jennifer . . Not Available [facility] ([facility]) [address] [place], [address], 03/12/2015 20:13:05 03/05/20 15 03/12/2015 pap, IG + HPV, cervi jennifer note: COMMEN T THE PAP SMEAR IS A SCREE LAKEISHA TEST DESIG KATHLEEN TO AID IN THE DETEC TION OF AMBAR LIGNA NT AND MALIG NANT CONDI TIONS OF THE UTERI NE CERVI X. IT IS NOT A DIAGN OSTIC PROCE DURE AND SHOUL D NOT BE USED THE SOLE MEANS OF DETEC TING CERVI JENNIFER CANCE R. BOTH FALSE -POSI TIVE AND FALSE -NEGA TIVE REPOR TS DO OCCUR . Not Available [facility] ([facility]) [address] [facility], [place], [address], 03/12/2015 20:13:05 03/05/20 15 03/12/2015 pap, IG + HPV, cervi jennifer test methodology: COMMEN T THIS LIQUI D BASED THINP REP(R ) PAP TEST WAS SCREE KATHLEEN WITH THE USE OF AN IMAGE GUIDE Eusebio Aiken. Not Available [facility] ([facility]) [address] [place], [address], 03/12/2015 20:13:05 07/18/19 17 07/19/2016 pap, IG + HPV, cervi jennifer diagnosis: COMMEN T NEGAT ADRIANNE FOR INTRA EPITH ELIAL LESIO N AND MALIGNACIA BACA . Not Available [facility] ([facility]) [address] [facility], [place], [address], 07/20/2016 10:36:37 07/18/19 17 07/19/2016 pap, IG + HPV, cervi jennifer specimen adequacy: COMMEN T SATIS FACTO RY FOR EVALU ATION . NO ENDOC ERVIC AL COMPO NENT IS IDENT IFIED . Not Available [facility] ([facility]) [address] [place], [address], 07/20/2016 10:36:37 07/18/19 17 07/19/2016 pap, IG + HPV, cervi jennifer clinician provided ICD10: YAA Delcid Z01.4 19 Not Available [facility] ([facility]) [address] [place], [address], 07/20/2016 10:36:37 07/18/19 17 07/19/2016 pap, IG + HPV, cervi jennifer performed by: YAA PINA , KAYLENE Delcid (ASCP ) Not Available [facility] ([facility]) [address] [place], [address], 07/20/2016 10:36:37 07/18/19 17 07/19/2016 pap, IG + HPV, cervi jennifer . . Not Available [facility] ([facility]) [address] [place], [address], 07/20/2016 10:36:37 07/18/19 17 07/19/2016 pap, IG + HPV, cervi jennifer note: YAA Delcid THE PAP SMEAR IS A SCREE LAKEISHA TEST DESIG KATHLEEN TO AID IN THE DETEC TION OF AMBAR LIGNA NT AND MALIG NANT CONDI TIONS OF THE UTERI NE CERVI X. IT IS NOT A DIAGN OSTIC PROCE DURE AND SHOUL D NOT BE USED THE SOLE MEANS OF DETEC TING CERVI JENNIFER CANCE R. BOTH FALSE -POSI TIVE AND FALSE -NEGA TIVE REPOR TS DO OCCUR . Not Available [facility] ([facility]) [address] [place], [address], 07/20/2016 10:36:37 07/18/19 17 07/19/2016 pap, IG + HPV, cervi jennifer test methodology: YAA Delcid THIS LIQUI D BASED THINP REP(R ) PAP TEST WAS SCREE KATHLEEN WITH THE USE OF AN IMAGE GUIDE Eusebio Aiken. Not Available [facility] ([facility]) [address] [place], [address], 07/20/2016 10:36:37 07/18/19 17 07/20/2016 pap, IG + HPV, cervi jennifer HPV aptima NEGATI VE negati ve THIS TEST DETEC TS FOURT EEN HIGH- RISK HPV TYPES (16/1 8/31/ 33/35 /39/4 5/ 51/52 /56/5 8/59/ 66/68 ) WITHO UT DIFFE RENTI ATION . Not Available [facility] ([facility]) [address] [facility], [place], [address], 07/20/2016 10:36:37 07/18/19 17 07/20/2016 bacte rial vagin osis + vagin itis panel , vagin al brianne albicans, SUSY NEGATI VE negati ve Not Available [facility] ([facility]) [address] [facility], [place], [address], 07/21/2016 07:13:20 07/18/19 17 07/20/2016 bacte rial vagin osis + vagin itis panel , vagin al brianne glabrata, SUSY NEGATI VE negati ve THIS TEST WAS DEVEL OPED AND ITS PERFO RMANC E JAN CTERI STICS DETER MINED BY [facility]. IT HAS NOT BEEN CLEAR ED OR APPRO NARESH BY THE FOOD AND DRUG ADMIN ISTRA TION. THE FDA HAS DETER MINED THAT SUCH CLEAR ANCE OR APPRO EDISON IS NOT NECES ROVERTO. Not Available [facility] ([facility]) [address] [facility], [place], [address], 07/21/2016 07:13:20 07/18/1907/20/2016 bacte rial vagin osis + vagin itis panel , vagin al trich vag by SUSY NEGATI VE negati ve Not Available [facility] ([facility]) [address] [place], [address], 07/21/2016 07:13:20 07/18/19 17 07/20/2016 bacte rial vagin osis + vagin itis panel , vagin al chlamydia trachomatis, SUSY NEGATI VE negati ve Not Available [facility] ([facility]) [address] [facility], [place], [address], 07/21/2016 07:13:20 07/18/19 17 07/20/2016 bacte rial vagin osis + vagin itis panel , vagin al neisseria gonorrhoeae, SUSY NEGATI VE negati ve Not Available [facility] ([facility]) [address] [place], [address], 07/21/2016 07:13:20 07/18/19 17 07/21/2016 bacte rial vagin osis + vagin itis panel , vagin al atopobium vaginae LOW - 0 score Not Available [facility] ([facility]) [address] [facility], [place], [address], 07/21/2016 07:13:20 07/18/19 17 07/21/2016 bacte rial vagin osis + vagin itis panel , vagin al bvab 2 LOW - 0 score Not Available [facility] ([facility]) [address] [place], [address], 07/21/2016 07:13:20 07/18/19 17 07/21/2016 bacte rial vagin osis + vagin itis panel , vagin al megasphaera 1 LOW - 0 score CALCU LATE TOTAL SCORE BY BRIGETTE Monterroso THE 3 INDIV IDUAL BACTE RIAL VAGIN OSIS (BV) MARKE R SCORE S TOGET HER. TOTAL SCORE IS INTER PRETE D FOLLO WS: TOTAL SCORE 0-1: INDIC ATES THE ABSEN CE OF BV. TOTAL SCORE 2: INDET ERMIN ATE FOR BV. ADDIT IONAL CLINI JENNIFER DATA SHOUL D BE EVALU ATED TO ESTAB LESLY A DIAGN OSIS. TOTAL SCORE 3-6: INDIC ATES THE PRESE NCE OF BV. THIS TEST WAS DEVEL OPED AND ITS PERFO RMANC E JAN CTERI STICS DETER MINED BY [facility]. IT HAS NOT BEEN CLEAR ED OR APPRO NARESH BY THE FOOD AND DRUG ADMIN ISTRA TION. THE FDA HAS DETER MINED THAT SUCH CLEAR ANCE OR APPRO EDISON IS NOT NECES ROVERTO. Not Available [facility] ([facility]) [address] [facility], [place], [address], 07/21/2016 07:13:20 07/18/19 17 07/20/2016 HSV (1+2) DNA, qual, PCR, unspe cifie d speci men hsv 1 SUSY NEGATI VE negati ve Not Available [facility] ([facility]) [address] [place], [address], 07/21/2016 07:13:20 07/18/19 17 07/20/2016 HSV (1+2) DNA, qual, PCR, unspe cifie d speci men hsv 2 SUSY NEGATI VE negati ve Not Available [facility] ([facility]) [address] [facility], [place], [address], 07/21/2016 07:13:20 07/18/1907/20/2016 cultu re, vagin al/re ctal, strep tococ cus group B strep gp B SUSY NEGATI VE negati ve [facility]ENTE RS FOR DISEA SE CONTR OL AND PREVE NTION (CDC) AND AMERI CAN CONGR ESS OF OBSTE TRICI ANS AND GYNEC OLOGI STS (ACOG ) GUIDE LINES FOR PREVE NTION OF PERIN ATAL GROUP B STREP TOCOC JENNIFER (GBS) DISEA SE SPECI FY CO-CO LLECT ION OF A VAGIN AL AND RECTA L SWAB SPECI MEN TO MAXIM IZE SENSI TIVIT Y OF GBS DETEC TION. PER THE CDC AND ACOG, SWABB ING BOTH THE LOWER VAGIN A AND RECTU M SUBST ANTIA LLY INCRE ASES THE YIELD OF DETEC TION HARJIT RED WITH SAMPL ING THE VAGIN A ALONE . PENIC ILLIN G, AMPIC ILLIN , OR CEFAZ NIKKI ARE INDIC ATED FOR INTRA PARTU M PROPH YLAXI S OF PERIN ATAL GBS COLON IZATI ON. REFLE X SUSCE PTIBI LITY TESTI NG SHOUL D BE PERFO RMED PRIOR TO USE OF CLIND AMYCI N ONLY ON GBS ISOLA SUKHI FROM PENIC ILLIN -BEATRIZ RGIC WOMEN WHO ARE CONSI DERED A HIGH RISK FOR ANAPH YLAXI S. TREAT MENT WITH VANCO MYCIN WITHO UT ADDIT IONAL TESTI NG IS WARRA NTED IF RESIS TANCE TO CLIND MICHAEL Magana IS NOTED . Not Available [facility] ([facility]) [address] [facility], [place], [address], 07/21/2016 07:13:21 09/27/19 18 09/28/2017 pap, IG + HPV, cervi jennifer diagnosis: Yaa VELÁZQUEZ IVE FOR INTRA EPITH ELIAL LESIO N AND EDER BACA . Not Available [facility] ([facility]) [address] [facility], [place], [address], 09/29/2017 06:05:35 09/27/19 18 09/28/2017 pap, IG + HPV, cervi jennifer specimen adequacy: Yaa delcid Satis facto ry for evalu ation . No endoc ervic al compo nent is ident ified . Not Available [facility] ([facility]) [address] [facility], [place], [address], 09/29/2017 06:05:35 09/27/19 18 09/28/2017 pap, IG + HPV, cervi jennifer clinician provided ICD10: Yaa delcid Z01.4 19 Z20.2 Not Available [facility] ([facility]) [address] [facility], [place], [address], 09/29/2017 06:05:35 09/27/19 18 09/28/2017 pap, IG + HPV, cervi jennifer performed by: Yaa Sheikh , Cytot brenda delcid Not Available [facility] ([facility]) [address] [facility], [place], [address], 09/29/2017 06:05:35 09/27/19 18 09/28/2017 pap, IG + HPV, cervi jennifer . . Not Available [facility] ([facility]) [address] [place], [address], 09/29/2017 06:05:35 09/27/19 18 09/28/2017 pap, IG + HPV, cervi jennifer note: Commen t The Pap smear is a scree lakeisha test desig kathleen to aid in the detec tion of ambar ligna nt and malig nant condi tions of the uteri ne cervi x. It is not a diagn ostic proce dure and shoul d not be used as the sole means of detec ting cervi jennifer cance r. Both false -posi tive and false -nega tive repor ts do occur . Not Available [facility] ([facility]) [address] [place], [address], 09/29/2017 06:05:35 09/27/19 18 09/28/2017 pap, IG + HPV, cervi jennifer test methodology: Yaa t This liqui d based ThinP rep(R ) pap test was scree kathleen with the use of an image guide eusebio aiken. Not Available [facility] ([facility]) [address] [facility], [place], [address], 09/29/2017 06:05:35 09/27/19 18 09/28/2017 pap, IG + HPV, cervi jennifer HPV aptima Negati ve negati ve This test detec ts fourt een high- risk HPV types (16/1 8/31/ 33/35 /39/4 5/ 51/52 /56/5 8/59/ 66/68 ) witho ut diffe renti ation . Not Available [facility] ([facility]) [address] [facility], [place], [address], 09/29/2017 06:05:35 01/26/20 17 01/25/2017 brian BROWN bilat eral No observ ation record ed. [facility] [address], [place], [address], 09/26/2017 12:45:23 08/23/20 17 MAMMO , scree lakeisha, digit al, bilat eral No observ ation record ed. [email or web address] Not Available 09/26 12:45:23 01/27/20 18 01/26/2018 MAMMO , scree lakeisha, bilat eral No observ ation record ed. [facility] [address], [place], [address], 01/28/2018 12:20:59 01/27/20 18 01/26/2018 MAMMO , scree lakeisha, bilat eral No observ ation record ed. MAURI Not Available 2017 12:20:59 02/06/20 18 bone densi ty No observ ation record ed. [facility] Not Available 2017 12:28:58 Result Notes None recorded. Problems Name Problem SNOMED Code Status Onset Date Resolution Date Notes Provider Name and Address Organization Details Recorded Time Hypothyroidism 27177450 Active Irene Snyder [place], [place] - [facility] 5 16:41:07 Asthma 475198948 Active Irene [place] [facility] 5 16:41:07 Depressive disorder 00691881 Active Irene [place] [facility] 5 16:41:07 Gastroesophage al reflux disease 366695228 Active Irene [place] [facility] 5 16:41:07 Chronic idiopathic constipation 36453005 Active Jordan BurtAfrica [place] [facility] 5 19:22:29 Anxiety disorder 633068487 Active Jordan [place] [facility] 5 19:22:29 Menorrhagia 183432672 Active Jordan [place] [facility] 5 18:58:53 Anxiety 92916857 Active Jordan [place] [facility] 5 18:58:53 Herpes simplex 12334907 Active 2016 Jordan Africa null, [place] [facility] 7 13:13:35 Problem Notes None recorded. Procedures Surgical History Date Name Laterality Status Provider Name and Address Organization Details Recorded Time 8 Date of Last Pap Smear completed Ely Trejo R[place] - [facility] 09/26/2017 12:38:54 7 Most Recent Mammogram completed Ely Trejo MA [facility] 09/26/2017 12:11:52 3 Caesarean Section completed Irene SnyderRHETT [facility] 03/05/2015 16:41:07 Tubal Ligation completed Irene RHETT Snyder [facility] 03/05/2015 16:41:07 LEEP completed Irene RHETT Snyder [facility] 03/05/2015 16:41:07 Colposcopy completed Irene RHETT Snyder [facility] 03/05/2015 16:41:07 Imaging Results Imaging Date Name Status LastModified by Organiz ation Details LastModified Time 01/25/2017 MAMMO, screening, bilateral completed [facility] [address] [place] [address] [place] [address], [id number], 09/26/2017 12:45:23 02/01/2017 MAMMO, screening, digital, bilateral completed [facility] Information not available 09/26/2017 12:45:23 01/26/2018 MAMMO, screening, bilateral completed [address] [place] [address], [id number], 01/28/2018 12:20:59 01/26/2018 MAMMO, screening, bilateral completed [facility] Information not available 01/28/2018 12:20:59 02/05/2018 bone density completed [facility] Information not available 02/06/2018 12:28:58 Procedure Notes None recorded. Medical Equipment None Reported. Allergies Allergen ID Allergen Name Allergen Category Reaction Reaction Severity Criticality Documentation Date Start Date Code Code System Note Provider Name and Address Organization Details Recorded Time 86797 Keflex medicatio n anaphylax is severe Not available 03/05/2015 7 RxNorm short ness of breat h Not Available Not Available Not Available Medications Name Sig Start Date Stop Date Status Note LastModified by Organization Details LastModified Time multivitami n tablet Take 1 tablet every day by oral route. 2017 active Not Available Not Available Not Avai lable amoxicillin 500 mg capsule 09/26 completed Not Available Not Available Not Available bupropion HCl SR 150 mg tablet,12 hr sustained-r elease TAKE ONE TABLET BY MOUTH TWICE DAILY 09/26 completed Not Available Not Available Not Available prednisone 10 mg tablet active Not Available Not Available Not Available clindamycin HCl 300 mg capsule active Not Available Not Available Not Available albuterol sulfate 2.5 mg/3 mL (0.083 %) solution for nebulizatio n active Not Available Not Available Not Available lisinopril 20 mg-hydrochl orothiazide 12.5 mg tablet active Not Available Not Available Not Available azithromyci n 250 mg tablet active Not Available Not Available Not Available pravastatin 40 mg tablet active Not Available Not Available Not Available ofloxacin 0.3 % eye drops active Not Available Not Available Not Available fluconazole 150 mg tablet active Not Available Not Available Not Available valacyclovi r 1 gram tablet 2019 active Not Available Not Available Not Avai lable hydrocodone 5 mg-acetamin ophen 325 mg tablet active Not Available Not Available No t Available naltrexone 50 mg tablet Take 1 tablet every day by oral route. 09/26 completed Not Available Not Available Not Available prednisone 20 mg tablet 09/26 completed Not Available Not Available Not Available Maxidex 0.1 % eye drops,suspe nsion active Not Available Not Available Not Available terconazole 0.8 % vaginal cream Insert 1 applicato rful every day by vaginal route for 3 days. 09/26 completed Not Available Not Available Not Available hydroxyzine HCl 50 mg tablet Take 1 tablet(s) twice a day by oral route. 09/26 completed Not Available Not Available Not Available norethindro ne 1 mg-ethinyl estradiol 20 mcg (21)-iron 75 mg (7) tablet 09/26 completed Not Available Not Available Not Available valacyclovi r 500 mg tablet active Not Available Not Available Not Available tramadol 50 mg tablet active Not Available Not Available No t Available acyclovir 800 mg tablet 1qd 09/26 completed Not Available Not Available Not Available amoxicillin 875 mg tablet active Not Available Not Available Not Available alprazolam 0.25 mg tablet active Not Available Not Available Not Available ciprofloxac in 0.3 % eye drops 09/26 completed Not Available Not Available Not Available hydrocodone 7.5 mg-acetamin ophen 325 mg tablet 09/26 completed Not Available Not Available Not Available simvastatin 20 mg tablet Take 1 tablet every day by oral route. 09/26 completed Not Available Not Available Not Available nystatin 100,000 unit/gram topical cream APPLY TO THE AFFECTED AREA(S) BY TOPICAL ROUTE 2 TIMES PER DAY 2016 active Not Available Not Available Not Avai lable olopatadine 0.1 % eye drops active Not Available Not Available Not Available montelukast 10 mg tablet active Not Available Not Available Not Available pravastatin 20 mg tablet active Not Available Not Available Not Available norethindro ne acetate 5 mg tablet TAKE ONE TABLET BY MOUTH ONE TIME DAILY 2017 active Not Available Not Available Not Avai lable lisinopril 10 mg-hydrochl orothiazide 12.5 mg tablet TAKE ONE TABLET BY MOUTH ONCE DAILY 09/26 completed Not Available Not Available Not Available levofloxaci n 500 mg tablet active Not Available Not Available Not Available methylpredn isolone 4 mg tablets in a dose pack active Not Available Not Available Not Available metoclopram keyla 10 mg tablet active Not Available Not Available Not Available amoxicillin 875 mg-potassiu m clavulanate 125 mg tablet 09/26 completed Not Available Not Available Not Available Ventolin HFA 90 mcg/actuati on aerosol inhaler active Not Available Not Available Not Available Restasis 0.05 % eye drops in a dropperette active Not Available Not Available Not Available rosuvastati n 20 mg tablet active Not Available Not Available Not Available Zirgan 0.15 % eye gel active Not Available Not Available No t Available Lo Loestrin Fe 1 mg-10 mcg (24)/10 mcg (2) tablet Take 1 tablet(s) every day by oral route. active Not Available Not Available No t Available calcium 600 mg (as carbonate)- vitamin D3 20 mcg (800 unit) tablet Take 1 tablet twice a day by oral route. 2017 active Not Available Not Available Not Avai lable Linzess 145 mcg capsule Take 1 capsule every day by oral route. 09/26 completed Not Available Not Available Not Available Virtussin AC 10 mg-100 mg/5 mL oral liquid 09/26 completed Not Available Not Available Not Available Vitals Date Recorded Body weight Body mass index (BMI) Body height Systolic blood pressure Diastolic blood pressure Provider Name and Address Organization Details Last Updated DateTime 09/26/2017 30168.37 g 32.3 kg/m2 162.56 cm 128 mm[Hg] 78 mm[Hg] Ely Trejo MA [facility] 8 12:17:39 Date Recorded Body height Body mass index (BMI) Body weight Systolic blood pressure Diastolic blood pressure Provider Name and Address Organization Details Last Updated DateTime 03/05/2015 162.56 cm 28.5 kg/m2 32337.33 342 g 124 mm[Hg] 80 mm[Hg] Irene Snyder MA [facility] 5 16:22:46 Date Recorded Body height Body weight Body mass index (BMI) Systolic blood pressure Diastolic blood pressure Provider Name and Address Organization Details Last Updated DateTime 07/18/2016 162.56 cm 39240.63 g 30.9 kg/m2 136 mm[Hg] 72 mm[Hg] Ely Trejo MA [facility] 7 12:54:59 Social History Question Answer Notes LastModified by Jocoosizat ion Details LastModified Time Tobacco Smoking Status Current Every Day Smoker Irene Snyder MA null, [facility] 03/05/2015 16:41:07 Do You Have An Advance Directive? No [email or web address] Information not available 03/05/2015 What Is Your Level Of Alcohol Consumption? Occasional 2 Times / Month [email or web address] Information not available 03/05/2015 Is Blood Transfusion Acceptable In An Emergency? Yes [email or web address] Information not available 03/05/2015 What Is Your Level Of Caffeine Consumption? Moderate Every Day [email or web address] Information not available 03/05/2015 How Much Tobacco Do You Chew? None [email or web address] Information not available 03/05/2015 Are You Currently Employed? No [email or web address] Information not available 03/05/2015 What Type Of Diet Are You Following? REGULAR Information not available 03/05/2015 Which Illicit Or Recreational Drugs Have You Used? Pt Denies [email or web address] Information not available 03/05/2015 Education 2 Year College [email or web address] Informatio n not available 03/05/2015 What Is Your Occupation? Unemployed, With No Work Experience In The Last 5 Years Or Earlier Or Never Worked [email or web address] Information not available 03/05/2015 Live Alone Or With Others? With Others [email or web address] Information not available 03/05/2015 What Was The Date Of Your Most Recent Tobacco Screening? 09/26/2017 Information not available 01/03/2019 How Many Children Do You Have? 2 [email or web address] Information not available 03/05/2015 Performs Monthly Self-breast Exam? No [email or web address] Information not available 03/05/2015 Do You Use Protection During Sex? No [email or web address] Information not available 03/05/2015 What Is Your Relationship Status? Single Information not available 03/05/2015 Seat Belts Used Routinely Yes [email or web address] Information not available 03/05/2015 Are You Sexually Active? Yes [email or web address] Information not available 03/05/2015 At What Age Did You Start Smoking Tobacco? 17 [email or web address] Information not available 03/05/2015 How Much Tobacco Do You Smoke? 0.5 PPD [email or web address] Information not available 03/05/2015 General Stress Level High [email or web address] Information not available 03/05/2015 Do You Use Sunscreen Routinely? Yes [email or web address] Information not available 03/05/2015 How Many Years Have You Smoked Tobacco? 23 [email or web address] Information not available 03/05/2015 Sex: Unknown Functional Status Question Answer Note LastModified by Organizat ion Details LastModified Time What is your exercise level? Occasional [email or web address] Information not available 03/05/2015 Mental Status None recorded. Family History Relationship Description Onset Age of this Age Resolved Age Notes LastModified by Organization Details LastModified Time Paternal Grandmother Malignant tumor of breast [email or web address] Not available 03/05 19:12:17 Unspecified Relation Diabetes mellitus [email or web address] Not available 03/05 19:12:17 Unspecified Relation Myocardial disease [email or web address] Not available 03/05 19:12:17 Unspecified Relation Hypertensive disorder [email or web address] Not available 03/05 19:12:17 Notes:Mother and maternal gr andmother with premalignant colon polyps Medical History Condition Response Coronary Artery Disease N Kidney Cyst N Blood Diseases N Hyperthyroidism N Blood Transfusion N MRSA N Blood disorders N Emphysema N Blood Clots N COPD N Depression Y Pneumonia N Premature N Peripheral Arterial Disease N Edema N TIA N Headaches/Migraines Y Anxiety Disorder Y Obesity N Infertility N Polyps N Acid Reflux (GERD) Y Hematuria N Stroke N Neck Injury N Polio N Hospital Admission other than N Neurologic Disorder N Other Sleep Disorders Y Rheumatoid Arthritis N Fibromyalgia N Abdominal Aortic Aneurysm Repair N Kidney Disease N Heart Conditions N Heart Disease/Heart Problems N Hospitalizations N Brain Tumors N Acne N Skin Problems N Eating Disorder N Meningitis N Constipation Y Tuberculosis N Cerebral Palsy N Myocardial Infarction N Asthma Y Substance Abuse N Peripheral Vascular Disease N Vertigo N Sleep Disorder Y Cirrhosis N Pulmonary Embolism N Chicken Pox N Hematologic Disease N Flomax Use Past or Present N Anxiety/Depression N Thyroid Disease Y Colon Cancer N Lung Disease N Glaucoma N Developmental or Behavioral Disorders N Bipolar Y Pacemaker N Diverticulitis/Diverticulosis N Orthopedic Problems N Anesthesia Complications N Orthotics N Head Injury/Concussion N Congenital Anomalies N Ramos Bite N Chronic Kidney Disease N Endometriosis N Liver Disease N Schizophrenia N Dialysis N Speech Delay N Chronic Obstructive Pulmonary Disease N Parkinson's Disease N Thyroid Problems Y GI Problems Y Developmental Delay N Anemia N Multiple Sclerosis N Immune System Disorder N Colon Polyps N Heart Attack ([place]) N Diabetes N Cardiomyopathy N Blood Transfusions N Heart Problems/Murmur Y Eye Trauma N Congestive Heart Failure (CHF) N Valvular Heart Disease N Hyperlipidemia N Double Vision N Abuse/Domestic Violence N Hepatitis B N Lupus N Epilepsy/Seizures N Reflux/GERD Y Aneurysm N Heart Disease N Bronchitis N Pre-Eclampsia N Hypertension N Heart Failure N Other N Gout N High Blood Pressure N Atrial Fibrillation N Kidney Stones N Head Trauma/Injury N Congenital Heart Disease N Spine Problems N Gastrointestinal Disease N Lung Mass N Sinusitis N Obstructive Sleep Apnea N Muscle, Joint, or Bone Problems N Autoimmune disease N Vision or Eye Problems N Arthritis N Blood Clot N Cancer N Seasonal allergies N Leg or Foot Ulcers N Raynaud's Disease N Aortic Aneurysm N Arrhythmia N Headaches Y Heart Problems N Ambloypia N Ear or Hearing Problems N Hyperparathyroidism N Migraines N Artificial Joints N Kidney or Bladder Problems N NSAID Use Y Encephalitis N PTSD N Ulcers N Prostate Hypertrophy N Bleeding Disorder N AIDS/HIV N Urinary Tract Infection N Back Problems N Allergies N Atrial Flutter Y GERD/Reflux Y Hepatitis N Autism Spectrum Disorder (ASD) N Breast Cancer N Hernia N Hypothyroidism Y Breast Problem N Genitourinary Disease N Deep Vein Thrombosis N Varicose Veins N Cystic Fibrosis N Hearing Loss N Developmental Problems N Carotid Disease N Vitamin D Deficiency N ADHD N Bladder or Kidney Problems N High Cholesterol N [place] N Valvular Abnormalities N Psychiatric/Mental Health Condition N Organ Transplant N Foot Deformity N Allergies/Hayfever Y Dyslipidemia N Hyponatremia N Diabetic Eye Disease N Osteoporosis/Osteopenia N Back Pain N Proteinuria N Mental Illness N Neurological Problems N Ovarian Cancer N Bedwetting N Seizures/Epilepsy N Kidney Failure N Ocular trauma N Diverticulitis N Dementia N Sleep Apnea N Mental Problems N Warfarin Management N Osteoporosis N Gynecological History Statement/Question Response Abnormal Pap Y STIs/STDs N HPV Vaccine N Most Recent Mammogram 01/25/2017 Age at Menarche 15 Current Control Method Tubal Ligat ion If Post Menopausal, Age at Menopause Sexually Active? Y Menses Monthly N Date of Last Pap Smear 09/26/2017 LMP Approximate Desired Control Method Obstetrics History GPAL:G 4 P 2 0 2 2 Type Value Multiple Births 0 Full Term 2 Induced 1 Spontaneous 1 Premature 0 Living 2 Ectopics 0 Total 4 Past Encounters Encounter ID Performer Location Encounter Start Date Encounter Closed Date Diagnosis/Indication Diagnosis SNOMED-CT Code Diagnosis ICD10 Code Diagnosis Note [id number] QUINN Petty (PROCESS SAFETY MANAGER) [address] [place] [address] [id number] [id number] 03/05/2015 15:32:19 03/05/2015 17:35:50 Gynecologic examination 57777288 Screening mammography 66881744 Chronic id iopathic constipation 54130461 Screening for malignant neoplasm of breast 092967249 Anxiety disorder 961997180 [id number] Jordan Morrell (PROCESS SAFETY MANAGER) [address] [place] [address] [id number] 07/18/2016 11:42:23 07/18/2016 14:41:45 Gynecologic examination 96287317 Z01.419 Candidiasis 59707476 B37 .9 Screening mammography 24 453410 Z12.31 Herpes simplex 56976116 B00.9 Hypertensive disorder 38 774876 I10 [id number] Jordan Morrell (PROCESS SAFETY MANAGER) [address] [place] [address] [id number] 09/26/2017 11:45:52 09/26/2017 13:04:27 Gynecologic examination 91376447 Z01.419 Screening mammography 24 906445 Z12.31 Family trinity nning surveillance 086257341 Z30.09 Screening for malignant neoplasm of colon 546773815 Z12.11 Herpes simplex 60518271 B00.9 Screening for osteoporosis 497117899 Z13.820 Health Concerns Section Related Observation LastModified by Organization Detai ls LastModified Time None Recorded Concern Status LastModified by Organization Details LastModified Time None Recorded Advance Directives Directive N: Payers Encounter Date Sequence Insurance Name Policy Number Policy Lance Covered Member ID Lance Member ID Guarantor Name 03/05/2015 2 [facility] PRIOR TO 12/10/2020 (MEDICAID REPLACEMENT - HMO) Lucila Jimenez [id number] Lucila Behrhorst 07/18/2016 2 [facility] PRIOR TO 12/10/2020 (MEDICAID REPLACEMENT - HMO) Lucila Sainzon [id number] Lucila Behrhorst 07/18/2016 1 [id number] Lucila Te Behrhorst [id number] Lucila Behrhorst 09/26/2017 2 [facility] PRIOR TO 12/10/2020 (MEDICAID REPLACEMENT - HMO) Lucila Sainzon [id number] Lucila Behrhorst 09/26/2017 1 [employer] [id number] Lucila M Behrhorst [id number] Lucila Behrhorst Notes Date Note Type Note Provider Name and Address Organization Details Recorded Time 07/18/2016 text/html Annual GYNReport ed bypatient.Menstrua l cycle:Normal menses Urinary symptoms:No hematuria; No incontinence Vulva:No genital lesion Vagina:Normal vaginal discharge;Vaginal burning Breast:No breast pain; No breast lump; No nipple discharge Current Contraception:Tuba l ligation Sexual complaints:No sexual complaints; No pain during intercourse; Normal libido Menopausal Symptoms:No menopausal symptoms; Normal vaginal lubrication Psychological symptoms:No depression; No anxiety; No PMDD Preventive measures:Encourage self breast examination; Encourage regular exercise; Encourage no tobacco use; Encourage regular mammograms starting age [age]yo [id number] female here for annual visit. Complains of vaginal burning and irritation. HANNAH Mcrae SIF 07/18/2016 14:45:32 09/26/2017 text/html Annual GYNReport ed bypatient.History: no gynecologic complaints; Hot flashes Menstrual cycle:Normal menses Urinary symptoms:No hematuria; No incontinence Vulva:No genital lesion Vagina:Normal vaginal discharge Breast:No breast pain; No breast lump; No nipple discharge Current Contraception:Tuba l ligation Sexual complaints:No sexual complaints; No pain during intercourse; Normal libido Menopausal Symptoms:No menopausal symptoms; Normal vaginal lubrication Psychological symptoms:No depression; No anxiety; No PMDD Preventive measures:Encourage self breast examination; Encourage regular exercise; Encourage no tobacco use; Encourage regular mammograms starting age 40; Followed with Q3 year pap smear and high risk HPV typing; Needs to schedule mammogram; Needs to schedule colonoscopy; Colonoscopy screening ordered, FH colon malignancy 46 yo CF here for WWE. FH colon malignancy. 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 Having hot flashes and trouble sleeping. Jordan Africa singer, [place] - [facility] 09/26/2017 13:25:15 OBGyn Episode Ob Episode Information Episode Created Date Number of Fetuses Patient Bloodtype Patient rh Status Prepregnancy Weight lbs Domestic Partner Domestic Partner Phone Father Name Commercial Front Load Operator Status 07/18/19 17 1 CLOSED Fetus Data First Name Last Name Admitted to NICU Weight (g) Sex Living Outcome Pediatric Complications Fetus ID Race Codes Race Delivery Type , Induced [id number] Felipe Calculation Initial Felipe Date Initial Exam Date Initial Exam Provider Initial Ultrasound Date Last Menstrual Period Date Ultra Sound Weeks Gestation 0 Eighteen To Twenty Week Felipe Update Ultra Sound Date Fundal Height At Umbil Quickening Date Ultra Sound Latest Weeks Gestation Final Felipe Confirmed By Final Felipe Confirmed Date Final Felipe Date Ultra Sound Latest Days Gestation 0 0 Menstrual History Last Menstrual Date Menses Monthly On Bcp Conception Prior Menses Frequency Hcg Plus Date Menarche Onset Age Delivery Information Delivery Date Delivery Type Labor Anesthesia Weeks Gestation Incision Type Labor Labor Length Hrs Delivered By Post Complications Tubal Sterilization Discharge Date Comments 0 6 Discharge Information Feeding Method Contraceptive Method Maternal HG B and HCT Levels Ob Episode Information Episode Created Date Number of Fetuses Patient Bloodtype Patient rh Status Prepregnancy Weight lbs Domestic Partner Domestic Partner Phone Father Name Commercial Front Load Operator Status 07/18/19 17 1 CLOSED Fetus Data First Name Last Name Admitted to NICU Weight (g) Sex Living Outcome Pediatric Complications Fetus ID Race Codes Race Delivery Type , Spontane ous [id number] Felipe Calculation Initial Felipe Date Initial Exam Date Initial Exam Provider Initial Ultrasound Date Last Menstrual Period Date Ultra Sound Weeks Gestation 0 Eighteen To Twenty Week Felipe Update Ultra Sound Date Fundal Height At Umbil Quickening Date Ultra Sound Latest Weeks Gestation Final Felipe Confirmed By Final Felipe Confirmed Date Final Felipe Date Ultra Sound Latest Days Gestation 0 0 Menstrual History Last Menstrual Date Menses Monthly On Bcp Conception Prior Menses Frequency Hcg Plus Date Menarche Onset Age Delivery Information Delivery Date Delivery Type Labor Anesthesia Weeks Gestation Incision Type Labor Labor Length Hrs Delivered By Post Complications Tubal Sterilization Discharge Date Comments 2 Discharge Information Feeding Method Contraceptive Method Maternal HG B and HCT Levels Ob Episode Information Episode Created Date Number of Fetuses Patient Bloodtype Patient rh Status Prepregnancy Weight lbs Domestic Partner Domestic Partner Phone Father Name Commercial Front Load Operator Status 07/18/19 17 1 CLOSED Fetus Data First Name Last Name Admitted to NICU Weight (g) Sex Living Outcome Pediatric Complications Fetus ID Race Codes Race Delivery Type [id number] Full Term [id number] Felipe Calculation Initial Felipe Date Initial Exam Date Initial Exam Provider Initial Ultrasound Date Last Menstrual Period Date Ultra Sound Weeks Gestation 0 Eighteen To Twenty Week Felipe Update Ultra Sound Date Fundal Height At Umbil Quickening Date Ultra Sound Latest Weeks Gestation Final Felipe Confirmed By Final Felipe Confirmed Date Final Felipe Date Ultra Sound Latest Days Gestation 0 0 Menstrual History Last Menstrual Date Menses Monthly On Bcp Conception Prior Menses Frequency Hcg Plus Date Menarche Onset Age Delivery Information Delivery Date Delivery Type Labor Anesthesia Weeks Gestation Incision Type Labor Labor Length Hrs Delivered By Post Complications Tubal Sterilization Discharge Date Comments 3 Regional-Sp inal 40 baby bor n @ [place] Discharge Information Feeding Method Contraceptive Method Maternal HG B and HCT Levels Ob Episode Information Episode Created Date Number of Fetuses Patient Bloodtype Patient rh Status Prepregnancy Weight lbs Domestic Partner Domestic Partner Phone Father Name Commercial Front Load Operator Status 07/18/19 17 1 CLOSED Fetus Data First Name Last Name Admitted to NICU Weight (g) Sex Living Outcome Pediatric Complications Fetus ID Race Codes Race Delivery Type [phone] [phone] Full Term [id number] Vaginal Felipe Calculation Initial Felipe Date Initial Exam Date Initial Exam Provider Initial Ultrasound Date Last Menstrual Period Date Ultra Sound Weeks Gestation 0 Eighteen To Twenty Week Felipe Update Ultra Sound Date Fundal Height At Umbil Quickening Date Ultra Sound Latest Weeks Gestation Final Felipe Confirmed By Final Felipe Confirmed Date Final Felipe Date Ultra Sound Latest Days Gestation 0 0 Menstrual History Last Menstrual Date Menses Monthly On Bcp Conception Prior Menses Frequency Hcg Plus Date Menarche Onset Age Delivery Information Delivery Date Delivery Type Labor Anesthesia Weeks Gestation Incision Type Labor Labor Length Hrs Delivered By Post Complications Tubal Sterilization Discharge Date Comments 5 Regional-Ep idural 40 baby bor n @ [place] Discharge Information Feeding Method Contraceptive Method Maternal HG B and HCT Levels
--- OUTSIDE RECORDS SUMMARY | 2024-09-08 20:19 | XMS_ITS | Clinical Summary ---
Author Organization [facility] Address [address] [place] [address] Care Team Providers Care Radiology Supervisor Name Role Phone Jorge Alberto Mcgowan MD Primary Care Provider [phone] Jey Branham MD Unavailable Yony Gonzales MD Unavailable [phone] Source Comments [facility],non-owned Affiliates and Associated Physician Practices is amultiple site organization consisting of ambulatory clinics and hospital sitesin [place], [place], [place] and [place]. This disclosure is being madepursuant to the Care Everywhere program and may not contain all information available regarding this patient. Last updated 18.[facility] Allergies Active Allergy Reactions Criticality Noted Date Comments Cephalexin Angioedema High Cephalosporins Other 05/15/2018 Mild per pt Codeine Itching 05/15/2018 unknown Guaifenesin Itching 05/15/2018 Sulfamethoxazole W-Trimethoprim Nausea and/or Vomiting 05/15/2018 Medications * Be aware that medications may not be up to date on this document. Alwaysverify current medications with the patient. Medication Sig Dispensed Refills Start Date End Date Status albuterol HFA (PROVENTIL;VENTOLIN ;PROAIR) 108 (90 BASE) MCG/ACT inhaler Inhale 2 puffs by mouth every 6 hours as needed Active lisinopril-hydroCHL OROthiazide (PRINZIDE; ZESTORETIC) 20-12.5 MG tablet TAKE ONE TABLET BY MOUTH EVERY DAY Active norethin-eth estrad-fe biphas (LO LOESTRIN FE) tablet Take 1 tablet every day by oral route. Active montelukast (SINGULAIR) 10 MG tablet Take 10 mg by mouth Activ e valACYclovir (VALTREX) 1 GM tablet valacyclovir 1 gram tablet TAKE ONE TABLET BY MOUTH EVERY DAY/ takes prn Active SITagliptin (JANUVIA) 100 MG tablet Take 100 mg by mouth once daily Active Naproxen Sodium (ALEVE) 220 MG Take 220 mg by mouth 2 times daily Active acetaminophen CR (TYLENOL ARTHRITIS PAIN) 650 MG tablet Take 650 mg by mouth every 8 hours as needed for Pain Active omeprazole (PRILOSEC) 20 MG capsule Take 20 mg by mouth daily before breakfast Active traMADol (ULTRAM) 50 MG tablet Take 100 mg by mouth at bedtime Active ALPRAZolam (XANAX) 0.25 MG tablet Take 0.25 mg by mouth at bedtime Active fexofenadine (LUIS) 180 MG tablet Take 180 mg by mouth once daily Active pravastatin (PRAVACHOL) 20 MG tablet Take 20 mg by mouth at bedtime Active fluticasone propionate (FLONASE) 50 MCG/ACT nasal spray [place] 2 sprays into each nostril 2 times daily Active Lactobacillus (ACIDOPHILUS PO) Take by mouth once daily Active diphenhydrAMINE (BENADRYL) 25 MG capsule Take 25 mg by mouth every 4 hours as needed for Itching Active B Complex Vitamins (B COMPLEX-B12 PO) Active Magnesium 300 MG Take 600 mg by mouth once daily Active Potassium 99 MG tablet Take 99 mg by mouth once daily Active calcium citrate (CALCITRATE) 950 MG tablet Take 950 mg by mouth once daily Active Active Problems Problem Noted Date Diagnosed Date S/P parathyroidectomy 05/22/2018 Anxiety disorder 03/07/2018 Asthma 03/07/2018 Chronic idiopathic constipation 03/07/2018 Depressive disorder 03/07/2018 Gastroesophageal reflux disease 03/07/2018 Hypothyroidism 03/07/2018 Menorrhagia 03/07/2018 Hyperparathyroidism, primary 03/07/2018 CVID (common variable immunodeficiency) 01/25/20 18 Herpes simplex 07/18/2016 Family History Medical History Relation Name Comments Asthma Brother CAD (Coronary Artery Disease) Father Hyperlipidemia Father Hypertension Father Anxiety Disorder Mother Asthma Mother CVA Mother Depression Mother Diabetes - Type 2 Mother Eczema Mother Glaucoma Mother Hyperlipidemia Mother Hypertension Mother Anxiety Disorder Sister Asthma Sister Depression Sister Eczema Sister Relation Name Status Comments Brother Father Mother Sister Social History Tobacco Use Types Packs/Day Years Used Date Smoking Tobacco: Every Day Cigarettes 0.5 16 Smokeless Tobacco: Never Tobacco Cessation:Ready to Q uit: No; Counseling Given: Yes Alcohol Use Standard Drinks/Week Comments No 0 (1 standard drink = 0.6 oz pur e alcohol) none for months Sex and Gender Information Value Date Recorded Sex Assigned at Not on file Gender Identity Not on file Sexual Orientation Not on file Last Filed Vital Signs Vital Sign Reading Time Taken Comments Blood Pressure 140/81 06/06/2018 9:07 AM WASTE MACHINE TENDER Pulse 109 06/06/2018 9:07 AM WASTE MACHINE TENDER Temperature 36.9 C (98.5 F) 05/22/2018 8:09 AM WASTE MACHINE TENDER Respiratory Rate 18 05/22/2018 8:09 AM WASTE MACHINE TENDER Oxygen Saturation 99% 05/22/2018 8:09 AM WASTE MACHINE TENDER Inhaled Oxygen Concentration - - Weight 81.2 kg (179 lb) 06/06/2018 9:07 AM WASTE MACHINE TENDER Height 160 cm (5' 3 ) 06/06/2018 9:07 AM WASTE MACHINE TENDER Body Mass Index 31.71 06/06/2018 9:07 AM WASTE MACHINE TENDER Plan of Treatment Health Maintenance Due Date Last Done Comments COLOGUARD (AGES 45-75) - COLON CA SCREENING 1970 COLON MONITORING 1970 COLONOSCOPY - COLON CA SCREENING 1970 CT COLONOGRAPHY - COLON CA SCREENING 1970 Colorectal Cancer Screening 1970 FIT - COLON CA SCREENING 1970 FLEX SIG - COLON CA SCREENING 1970 MAMMOGRAM 1970 PAP SMEAR 1970 COVID-19 VACCINE (#1) 12/17/1975 HIV SCREENING 1985 HEPATITIS C SCREENING 12/11/1988 DTAP/TDAP/TD VACCINES (1 - Tdap) 1989 HEPATITIS B VACCINE (1 of 3 - 19+ 3-dose series) 1989 PNEUMOCOCCAL VACCINE 50+ (1 of 2 - PCV) 1989 PNEUMOCOCCAL VACCINE (1 of 2 - PCV) 1989 ZOSTER VACCINE (1 of 2) 1989 SCREENING FOR DIABETES 05/22/2021 8, 05/21/2018, 05/21/2018, Additional history exists INFLUENZA VACCINE (#1) 2024 DEPRESSION SCREENING 06/12/2024 HIB VACCINE Aged Out No longer eligi ble based on patient's age to complete this topic HPV VACCINE Aged Out No longer eligi ble based on patient's age to complete this topic MENINGOCOCCAL (Group B) VACCINE SHARED DECISION-MAKING Aged Out No longer eligible based on patient's age to complete this topic MENINGOCOCCAL GROUPS A/C/Y/W VACCINE Aged Out No longer eligible based on patient's age to complete this topic Procedures Procedure Name Priority Date/Time Associated Diagnosis Comments GLUCOSE - POINT OF CARE Routine 05/22/2018 6:38 AM WASTE MACHINE TENDER from Last 3 Months or Most Recently Relevant to Health Maintenance Results * GLUCOSE - POINT OF CARE (05/22/2018 6:38 AM WASTE MACHINE TENDER) Glucose WB/POC 73 70 - 115 mg/dL 05/22/2018 6:47 AM WASTE MACHINE TENDER [facility] Specimen Type Arterial/C apillary 05/22/2018 6:47 AM WASTE MACHINE TENDER [facility] Blood BLOOD SPECIMEN / Unknown 05/22/2018 6:38 AM WASTE MACHINE TENDER 05/22/2018 6:47 AM WASTE MACHINE TENDER Narrative [facility] - 05/22/2018 6:47 AM WASTE MACHINE TENDER Network Services Project Manager: FRANTZ MURRIETA Leroy Arteaga MD LAB - POINT OF CARE ORDERABLES Performing Organization Address City/State/[facility] Co de Phone Number [address] [phone] from Last 3 Months or Most Recently Relevant to Health Maintenance Advance Directives * Full Code (Latest Code Status on File) Date Activated Date Inactivated Comments 05/21/2018 5:55 PM 05/22/2018 11:43 AM * Full Code Date Activated Date Inactivated Comments 05/21/2018 6:58 AM 05/21/2018 5:55 PM Care Teams Radiology Supervisor Relationship Specialty Start Date End Date Jorge Alberto Mgcowan MD [address] [place] [id number] PCP - General 02/22/18 Jey Branham MD [address] [place] [id number] Physician Medical Oncology 03/07/18 Yony Gonzales MD [address] [place] [address] Physician Allergy and Immunology 03/07/18
--- OUTSIDE RECORDS SUMMARY | 2024-09-08 20:19 | XMS_ITS | Clinical Summary ---
Author Organization [facility] Address [address] [place] [address] Care Team Providers Care Private Equity Associate Name Role Phone Kelvin Aguilar Primary Care Provider [phone] Allergies Active Allergy Reactions Criticality Noted Date Comments Cephalexin Anaphylaxis,Angioedema High Codeine Itching Low 05/15/2018 Fish Containing Products Anaphylaxis High 04/04/2018 Guaifenesin Itching Low 05/15/2018 Sulfamethoxazole-Trimethoprim Nausea and Vomiting Low 05/15/2018 Medications norethindrone- e.estradiol-ir on (LO LOESTRIN FE) 1 mg-10 mcg (24)/10 mcg (2) Tablet per tablet Lo Loestrin Fe 1 mg-10 mcg (24)/10 mcg (2) tablet Take 1 tablet every day by oral route. Active multivitamin (DAILY-GRAY) tablet multivitamin tablet Take 1 tablet every day by oral route. Active nystatin (MYCOSTATIN) 100,000 unit/gram Cream nystatin 100,000 unit/gram topical cream APPLY TO THE AFFECTED AREA(S) BY TOPICAL ROUTE 2 TIMES PER DAY Active valACYclovir (VALTREX) 1 gram tablet valacyclovir 1 gram tablet TAKE ONE TABLET BY MOUTH EVERY DAY Active simvastatin (ZOCOR) 20 mg tablet Take 20 mg by mouth late in the day. Active fexofenadine-p seudoephedrine SR 12 hour (LUIS-D) 60-120 mg tablet Take 1 Tablet by mouth 2 times daily. Active fluticasone (FLONASE) 50 mcg/spray [place], Suspension Administer 2 Sprays in each nostril daily. Active viatamin B complex-vitami n D-giyvyxsm-kju n-folic acid 106 mg iron- 1 mg Tablet Take 1 Tablet by mouth daily. Active albuterol HFA 90 mcg inhaler Take 2 Puffs by inhalation every 6 hours as needed for Shortness of Breath. Active montelukast (SINGULAIR) 10 mg tablet Take 10 mg by mouth daily at bedtime. Active acetaminophen (TYLENOL ARTHRITIS) 650 mg Extended Release tablet Take 650 mg by mouth. Active sitaGLIPtin (JANUVIA) 100 mg Tablet Take 100 mg by mouth. Active omeprazole (PriLOSEC) 20 mg Capsule, Delayed Release(E.C.) Take 20 mg by mouth. Active cholecalcifero l, vitamin D3, 5,000 unitIndication s:taking 3x a week Take 400 Units by mouth daily. Active lisinopril (PRINIVIL) 20 mg tablet Take 40 mg by mouth daily. Active cyclosporine (RESTASIS OP) by Ophthalmic route. Active diclofenac sodium (VOLTAREN) 75 mg Tablet, Delayed Release (E.C.) 9 Active pilocarpine (SALAGEN) 5 mg Tablet Take 1 Tablet (5 mg) by mouth 3 times daily. 90 Tablet 9 Active predniSONE (DELTASONE) 10 mg tablet prednisone 10 mg tablet Active olopatadine (PATANOL) 0.1 % solution olopatadine 0.1 % eye drops Active ofloxacin (OCUFLOX) 0.3 % solution ofloxacin 0.3 % eye drops Active norethindrone acetate (AYGESTIN) 5 mg Tablet norethindrone acetate 5 mg tablet TAKE ONE TABLET BY MOUTH ONE TIME DAILY Active modafiniL (PROVIGIL) 100 mg Tablet 0 Active LORazepam (ATIVAN) 1 mg tablet 0 Active lisinopril-hyd roCHLOROthiazi de (ZESTORETIC) 20-12.5 mg tablet lisinopril 20 mg-hydrochlorothi azide 12.5 mg tablet Active hydroCHLOROthi azide 25 mg tablet 0 Active DULoxetine (CYMBALTA) 60 mg Capsule, Delayed Release(E.C.) 0 Active diphenhydrAMIN E (BENADRYL) 25 mg capsule Take 25 mg by mouth every 4 hours as needed. Active calcium carbonate-pamela min D3 (CALTRATE 600 + D) 600 mg(1,500mg) -800 unit Tablet 2 times daily. Activ e valACYclovir (VALTREX) 1 gram tablet 0 Active cycloSPORINE (Restasis) 0.05 % emulsion Restasis 0.05 % eye drops in a dropperette Active Restasis 0.05 % emulsion 0 Active pilocarpine (PILOCAR) 1 % solution 0 Active diclofenac sodium-menthoL 1.5-10 % Combo Pack 0 Active potassium chloride (KLOR-CON) 10 mEq Extended Release tablet Take 1 Tablet (10 mEq) by mouth 2 times daily. 60 Tablet 3 0 Active potassium chloride (KLOR-CON) 10 mEq Extended Release tablet TAKE 1 TABLET BY MOUTH TWICE A DAY 180 Tablet 1 2 Active Active Problems Problem Noted Date Diagnosed Date Hypokalemia 11/08/2019 Anxiety state 11/08/2019 Xerostomia 11/08/2019 CVID (common variable immunodeficiency) 01/25/20 18 Social History Tobacco Use Types Packs/Day Years Used Date Smoking Tobacco: Every Day Cigarettes Smokeless Tobacco: Never Alcohol Use Standard Drinks/Week Comments No 0 (1 standard drink = 0.6 oz pur e alcohol) Comments No Sex and Gender Information Value Date Recorded Sex Assigned at Not on file Legal Sex Female 9:15 AM CDT Gender Identity Not on file Sexual Orientation Not on file Last Filed Vital Signs Vital Sign Reading Time Taken Comments Blood Pressure 132/86 02/13/2020 8:57 AM CDT Pulse 104 02/13/2020 8:57 AM CDT Temperature 36.8 C (98.2 F) 02/13/2020 8:57 AM CDT Respiratory Rate 20 07/31/2019 9:09 AM POOL TABLE OPERATOR Oxygen Saturation 97% 02/13/2020 8:57 AM CDT Inhaled Oxygen Concentration - - Weight 77.9 kg (171 lb 11.2 oz) 02/13/2020 8:57 AM CDT Height 158.8 cm (5' 2.5 ) 02/13/2020 8:57 AM CDT Body Mass Index 30.9 02/13/2020 8:57 AM CDT Plan of Treatment Health Maintenance Due Date Last Done Comments PNEUMOCOCCAL VACCINE 0-49 YEARS (1 of 2 - PCV) 977 DTAP/TDAP/TD VACCINES (1 - Tdap) 1989 HEPATITIS B VACCINES (1 of 3 - 19+ 3-dose series) 12/1989 ZOSTER VACCINE (1 of 2) 1989 PAP SMEAR 12/17/1991 CERVICAL CANCER SCREENING 2000 HPV/Cotest (30-65) 2000 PAP SMEAR 2000 COLORECTAL SCREENING 12/17/2015 Colorectal Cancer Screening 12/17/2015 FIT-DNA Q 3 years 12/17/2015 FIT/FOBT Q 1 year 12/17/2015 Flex Sig/CT Colonography Q 5 years 12/17/2015 BREAST CANCER SCREENING 01/25/2019 01/25/2018 INFLUENZA VACCINE (#1) 2024 04/09/2018 Procedures Procedure Name Priority Date/Time Associated Diagnosis Comments MAMMO SCREENING BILAT Routine 01/25/2018 from Last 3 Months or Most Recently Relevant to Health Maintenance Results * MAMMO SCREENING BILAT (01/25/2018) Anatomical Region Laterality Modality Breast Bilateral Mammography Jordan Leger MD MAMMO ORDERABLES Final Result from Last 3 Months or Most Recently Relevant to Health Maintenance Insurance [facility] OPTIONS PPO [id number] Care Teams Private Equity Associate Relationship Specialty Start Date End Date Kelvin Aguilar DO [address] [facility] [address] [place] [phone] PCP - General Internal Medicine 12/28/18
--- OUTSIDE RECORDS SUMMARY | 2024-09-08 20:19 | XMS_ITS | Data Portability ---
Author Organization [facility] [employer], Main Office Address [address] [place] [address] Assessment No assessment recorded. Plan of Treatment Reminders Order Date Submit Date Provider Last Modified By Organization Details Last Modified Time Details Appointments None recorded. Lab glycohemogl obin, total, blood 2023 024 [email or web address] 2 Not available 4 17:15:10 hemoglobin A1C, fingerstick 2022 023 [facility] [address], [place], [address], 3 12:55:22 igg, quantitativ e, serum 2022 023 [email or web address] 11 Not available 3 08:43:10 CBC w/ auto diff 2022 023 [email or web address] 11 Not available 3 08:43:11 igm, quantitativ e, serum 2022 023 [email or web address] 11 Not available 3 08:43:11 iga, quantitativ e, serum 2022 023 [email or web address] 11 Not available 3 08:43:11 iron + TIBC + ferritin, serum 2022 023 [email or web address] 11 Not available 3 08:43:10 ferritin, serum or plasma 2022 023 atolliver 11 Not available 3 08:43:10 PTH (parathyroi d hormone), intact + calcium, serum or plasma 2022 023 [email or web address] 11 Not available 3 08:43:09 lipid panel, serum 2022 023 [email or web address] 11 Not available 3 08:43:09 CMP, serum or plasma 2022 023 [email or web address] 11 Not available 3 08:43:10 CBC w/ auto diff 2022 023 [email or web address] 11 Not available 3 08:43:10 CK (creatine kinase), total, serum 2022 023 [email or web address] 11 Not available 3 08:43:10 TSH, serum or plasma 2022 023 [email or web address] 11 Not available 3 08:43:10 Referral hematologis t referral 2022 023 [place] [address] [facility], [address] [facility], [address], [place], [address], 3 13:59:14 gynecologis t referral 2022 023 [email or web address] [facility] Urology/Urogy necology Vlad [facility], [address] [facility], [address], [place], [address], 4 12:26:26 Procedures None recorded. Surgeries None recorded. Imaging DEXA - *Please call pt to schedule* 2022 023 [email or web address] 256 Not available 3 08:48:19 MAMMO, screening, digital, bilateral - Has fibrocystic breasts *Please call pt to schedule* 2022 023 [email or web address] 256 Not available 3 08:47:35 Medication Orders cyclobenzap rine 10 mg tablet 2023 024 [facility], [address] [place], [address], 4 16:40:10 phentermine 37.5 mg capsule 2023 024 [facility], [address], [place], [address], 4 16:32:47 valacyclovi r 1 gram tablet 2023 024 [facility] [address], [address], [place], [address], 4 16:39:31 terbinafine HCl 250 mg tablet 2023 024 [facility] [address], [address], [place], [address], 4 16:34:11 Ventolin HFA 90 mcg/actuati on aerosol inhaler 2023 024 [facility] [address], [address], [place], [address], 4 15:57:55 prednisone 20 mg tablet 2023 024 [facility] [address], [address], [place], [address], 4 16:40:09 ibuprofen 800 mg tablet 2022 023 [facility] [address], [address], [place], [address], 3 12:13:17 terbinafine HCl 250 mg tablet [facility]22 [email or web address], [address], [place], [address], 4 16:11:10 mirtazapine 7.5 mg tablet 2022 023 [facility] [address], [address], [place], [address], 3 11:19:47 cyclobenzap rine 10 mg tablet 2022 023 [facility] [address], [address] [place] [address], [address], 4 16:14:22 mirtazapine 7.5 mg tablet 2022 023 [facility] [address], [address] [place], [address], 3 12:49:00 hydrochloro thiazide 25 mg tablet 2022 023 [facility] [address], [address] [place], [address], 3 12:23:05 Microgestin 1/20 (21) 1 mg-20 mcg tablet 2022 023 [facility] [address], [address] [place], [address], 3 12:11:13 prednisone 20 mg tablet 2022 023 [facility] [address], [address] [place] [address], [address], 4 16:14:40 sumatriptan 100 mg tablet 2022 023 [facility] [address], [address] [place] [address], [address], 4 16:10:52 Patient TargetsNo targets recorded. Patient Instructions Encounter Date Encounter Id Patient Instructions Last Modified By Organization Details Last Modified Time 05/12/2023 [id number] she's using canelo zacarias Not available 05/20/2023 16:52:49 Reason for Referral [facility] Referral for Sc reening for malignant neoplasm of cervix Referring Physician: [facility], Encounter Date: 01/18/2023 Referring Physician: [facility], Encounter Date: 01/18/2023 Results Created Date Observation Date Name Description Value Unit Range Abnormal Flag Note LastModifiedBy Organization Detail LastModifiedTime 01/19/2001/18/2023 hemog lobin A1C, finge rstic k HgbA1C 5.3 Not Available [address], [place], [address], 01/18/2023 12:29:02 02/28/20 23 02/27/2023 CBC/D IFF AMBIG UOUS DEFAU LT WBC 7.1 x10e3 /uL 3.4-10 .8 Not Available [facility]) [address] [facility] [place], [place], [address], 02/28/2023 14:11:41 02/28/20 23 02/27/2023 CBC/D IFF AMBIG UOUS DEFAU LT RBC 4.54 x10e6 /uL 3.77-5 .28 Not Available [facility] ([facility]) [address] [place], [address], 02/28/2023 14:11:41 02/28/20 23 02/27/2023 CBC/D IFF AMBIG UOUS DEFAU LT hemoglobin 13.7 g/dL 11.1-1 5.9 Not Available [facility] ([facility]) [address] [facility] [place], [place], [address], 02/28/2023 14:11:41 02/28/20 23 02/27/2023 CBC/D IFF AMBIG UOUS DEFAU LT hematocrit 40.6 % 34.0-4 6.6 Not Available [facility] ([facility]) [address] [place], [address], 02/28/2023 14:11:41 02/28/20 23 02/27/2023 CBC/D IFF AMBIG UOUS DEFAU LT MCV 89 fL 79-97 Not Available [facility] ([facility]) [address] [facility] [place], [place], [address], 02/28/2023 14:11:41 02/28/20 23 02/27/2023 CBC/D IFF AMBIG UOUS DEFAU LT MCH 30.2 pg 26.6-3 3.0 Not Available [facility] ([facility]) [address] [facility] [place], [place], [address], 02/28/2023 14:11:41 02/28/20 23 02/27/2023 CBC/D IFF AMBIG UOUS DEFAU LT MCHC 33.7 g/dL 31.5-3 5.7 Not Available [facility] ([facility]) [address] [facility] [place], [place], [address], 02/28/2023 14:11:41 02/28/20 23 02/27/2023 CBC/D IFF AMBIG UOUS DEFAU LT RDW 11.5 % 11.7-1 5.4 below low normal Not Available [facility] ([facility]) [address] [facility] [place], [place], [address], 02/28/2023 14:11:41 02/28/20 23 02/27/2023 CBC/D IFF AMBIG UOUS DEFAU LT platelets 480 x10e3 /uL 150-45 0 above high normal Not Available [facility] ([facility]) [address] [facility] [place], [place], [address], 02/28/2023 14:11:41 02/28/20 23 02/27/2023 CBC/D IFF AMBIG UOUS DEFAU LT neutrophils 74 % not estab. Not Available [facility] ([facility]) [address] [facility] [place], [place], [address], 02/28/2023 14:11:41 02/28/20 23 02/27/2023 CBC/D IFF AMBIG UOUS DEFAU LT lymphs 18 % not estab. Not Available [facility] ([facility]) [address] [facility] [place], [place], [address], 02/28/2023 14:11:41 02/28/20 23 02/27/2023 CBC/D IFF AMBIG UOUS DEFAU LT monocytes 6 % not estab. Not Available [facility]) [address] [facility] [place], [place], [address], 02/28/2023 14:11:41 02/28/20 23 02/27/2023 CBC/D IFF AMBIG UOUS DEFAU LT eos 1 % not estab. Not Available [facility] ([facility]) [address] [facility] [place], [place], [address], 02/28/2023 14:11:41 02/28/20 23 02/27/2023 CBC/D IFF AMBIG UOUS DEFAU LT basos 1 % not estab. Not Available [facility]) [address] [facility] [place], [place], [address], 02/28/2023 14:11:41 02/28/20 23 02/27/2023 CBC/D IFF AMBIG UOUS DEFAU LT immature cells COMMUNICATIONS PROJECT LEAD Not Available [facility] [address] [facility] [place], [place], [address], 02/28/2023 14:11:41 02/28/20 23 02/27/2023 CBC/D IFF AMBIG UOUS DEFAU LT neutrophils (absolute) 5.3 x10e3 /uL 1.4-7. 0 Not Available [facility]) [address] [facility] [place], [place], [address], 02/28/2023 14:11:41 02/28/20 23 02/27/2023 CBC/D IFF AMBIG UOUS DEFAU LT lymphs (absolute) 1.3 x10e3 /uL 0.7-3. 1 Not Available [facility]) [address] [facility] [place], [place], [address], 02/28/2023 14:11:41 02/28/20 23 02/27/2023 CBC/D IFF AMBIG UOUS DEFAU LT monocytes(ab solute) 0.4 x10e3 /uL 0.1-0. 9 Not Available [facility]) [address] [facility] [place], [place], [address], 02/28/2023 14:11:41 02/28/20 23 02/27/2023 CBC/D IFF AMBIG UOUS DEFAU LT eos (absolute) 0.1 x10e3 /uL 0.0-0. 4 Not Available [facility] ([facility]) [address] [facility] [place], [place], [address], 02/28/2023 14:11:41 02/28/20 23 02/27/2023 CBC/D IFF AMBIG UOUS DEFAU LT baso (absolute) 0.0 x10e3 /uL 0.0-0. 2 Not Available [facility] ([facility]) [address] [facility] [place], [place], [address], 02/28/2023 14:11:41 02/28/20 23 02/27/2023 CBC/D IFF AMBIG UOUS DEFAU LT immature granulocytes 0 % not estab. Not Available [facility]) [address] [facility] [place], [place], [address], 02/28/2023 14:11:41 02/28/20 23 02/27/2023 CBC/D IFF AMBIG UOUS DEFAU LT immature grans (abs) 0.0 x10e3 /uL 0.0-0. 1 Not Available [facility] ([facility]) [address] [facility] [place], [place], [address], 02/28/2023 14:11:41 02/28/20 23 02/27/2023 CBC/D IFF AMBIG UOUS DEFAU LT NRBC COMMUNICATIONS PROJECT LEAD Not Available [facility]) [address] [facility] [place], [place], [address], 02/28/2023 14:11:41 02/28/20 23 02/27/2023 CBC/D IFF ELIOT MEJIA DEFAU LT hematology comments: COMMUNICATIONS PROJECT LEAD A hand- writt en panel /prof lopes was recei chandrika from your offic e. In accor dance with the [facility] Eliot mejia Test Code Polic y dated December 2002, we have assig kathleen CBC with Diffe saray al/Pl atestan t, Test Code #[address]. If this is not the testi ng you wishe d to recei ve on this speci men, pleas e conta ct the [facility] Clien t Inqui ry/ Techn ical Servi kiran Depar tment to cedrick fy the test order . We appre ciate your busin ess. Not Available [facility] ([facility]) [address] [place], [address], 02/28/2023 14:11:41 02/28/20 23 02/28/2023 COMP. METAB OLIC PANEL (14) glucose 99 mg/dL 70-99 Not Available [facility] ([facility]) [address] [place], [address], 02/28/2023 14:11:42 02/28/20 23 02/28/2023 COMP. METAB OLIC PANEL (14) BUN 12 mg/dL 6-24 Not Available [facility] ([facility]) [address] [place], [address], 02/28/2023 14:11:42 02/28/20 23 02/28/2023 COMP. METAB OLIC PANEL (14) creatinine 0.65 mg/dL 0.57-1 .00 Not Available [facility] ([facility]) [address] [place], [address], 02/28/2023 14:11:42 02/28/20 23 02/28/2023 COMP. METAB OLIC PANEL (14) eGFR 106 mL/mi n/1.7 3 >59 Not Available [facility] ([facility]) [address] [facility] [place], [place], [address], 02/28/2023 14:11:42 02/28/20 23 02/28/2023 COMP. METAB OLIC PANEL (14) BUN/creatini ne ratio 18 - Not Available [facility]) [address] [facility] [place], [place], [address], 02/28/2023 14:11:42 02/28/20 23 02/28/2023 COMP. METAB OLIC PANEL (14) sodium 142 mmol/ L 134-14 4 Not Available [facility] ([facility]) [address] [facility] [place], [place], [address], 02/28/2023 14:11:42 02/28/20 23 02/28/2023 COMP. METAB OLIC PANEL (14) potassium 4.1 mmol/ L 3.5-5. 2 Not Available [facility] ([facility]) [address] [facility] [place], [place], [address], 02/28/2023 14:11:42 02/28/20 23 02/28/2023 COMP. METAB OLIC PANEL (14) chloride 105 mmol/ L 96-106 Not Available [facility]) [address] [facility] [place], [place], [address], 02/28/2023 14:11:42 02/28/20 23 02/28/2023 COMP. METAB OLIC PANEL (14) carbon dioxide, total 25 mmol/ L 20-29 Not Available [facility]) [address] [facility] [place], [place], [address], 02/28/2023 14:11:42 02/28/20 23 02/28/2023 COMP. METAB OLIC PANEL (14) calcium 9.3 mg/dL 8.7-10 .2 Not Available [facility]) [address] [facility] [place], [place], [address], 02/28/2023 14:11:42 02/28/20 23 02/28/2023 COMP. METAB OLIC PANEL (14) protein, total 6.5 g/dL 6.0-8. 5 Not Available [facility] ([facility]) [address], [place], [address], 02/28/2023 14:11:42 02/28/20 23 02/28/2023 COMP. METAB OLIC PANEL (14) albumin 4.1 g/dL 3.8-4. 9 Not Available [facility] ([facility]) [address], [place], [address], 02/28/2023 14:11:42 02/28/20 23 02/28/2023 COMP. METAB OLIC PANEL (14) globulin, total 2.4 g/dL 1.5-4. 5 Not Available [facility] ([facility]) [address], [place], [address], 02/28/2023 14:11:42 02/28/20 23 02/28/2023 COMP. METAB OLIC PANEL (14) A/G ratio 1.7 1.2-2. 2 Not Available [facility] ([facility]) [address], [place], [address], 02/28/2023 14:11:42 02/28/20 23 02/28/2023 COMP. METAB OLIC PANEL (14) bilirubin, total 0.3 mg/dL 0.0-1. 2 Not Available [facility] ([facility]) [address], [place], [address], 02/28/2023 14:11:42 02/28/20 23 02/28/2023 COMP. METAB OLIC PANEL (14) alkaline phosphatase 85 IU/L 44-121 Not Available [facility]) [address], [place], [address], 02/28/2023 14:11:42 02/28/20 23 02/28/2023 COMP. METAB OLIC PANEL (14) AST (SGOT) 12 IU/L 0-40 Not Available [facility]) [address] [facility] [place], [address], 02/28/2023 14:11:42 02/28/20 23 02/28/2023 COMP. METAB OLIC PANEL (14) ALT (SGPT) 17 IU/L 0-32 Not Available [facility] ([facility]) [address] [facility] [place], [place], [address], 02/28/2023 14:11:42 02/28/20 23 02/28/2023 LIPID PANEL cholesterol, total 265 mg/dL 100-19 9 above high normal Not Available [facility] ([facility]) [address] [place], [address], 02/28/2023 14:11:43 02/28/20 23 02/28/2023 LIPID PANEL triglyceride s 173 mg/dL 0-149 above high normal Not Available [facility]) [address] [place], [address], 02/28/2023 14:11:43 02/28/20 23 02/28/2023 LIPID PANEL HDL cholesterol 70 mg/dL >39 Not Available [facility] [address] [place], [address], 02/28/2023 14:11:43 02/28/20 23 02/28/2023 LIPID PANEL VLDL cholesterol jennifer 31 mg/dL 5-40 Not Available [facility]) [address] [place], [address], 02/28/2023 14:11:43 02/28/20 23 02/28/2023 LIPID PANEL LDL chol calc ([facility]) 164 mg/dL 0-99 above high normal Not Available [facility]) [address] [place], [address], 02/28/2023 14:11:43 02/28/20 23 02/28/2023 LIPID PANEL comment: COMMUNICATIONS PROJECT LEAD Not Available [facility] ([facility]) [address] [place], [address], 02/28/2023 14:11:43 02/28/20 23 02/28/2023 IRON AND TIBC iron bind.cap.(TI BC) 355 ug/dL 250-45 0 Not Available [facility] ([facility]) [address] [place], [address], 02/28/2023 14:11:44 02/28/20 23 02/28/2023 IRON AND TIBC UIBC 196 ug/dL 131-42 5 Not Available [facility] ([facility]) [address] [place], [address], 02/28/2023 14:11:44 02/28/20 23 02/28/2023 IRON AND TIBC iron 159 ug/dL 27-159 Not Available [facility]) [address] [facility] [place], [place], [address], 02/28/2023 14:11:44 02/28/20 23 02/28/2023 IRON AND TIBC iron saturation 45 % 15-55 Not Available [facility] [address] [place], [address], 02/28/2023 14:11:44 02/28/20 23 02/27/2023 CA+PT H INTAC T intact PTH COMMEN T Inter preta tion Intac t PTH Calci um (pg/m L) (mg/d L) Mitali l 15 - 65 8.6 - 10.2 Prima ry Hyper parat hyroi dism >65 >10.2 Secon yajaira Hyper parat hyroi dism >65 <10.2 Non-P marleen yroid Hyper calce fernando <65 >10.2 Hypop marleen yroid ism <15 < 8.6 Non-P marleen yroid Hypoc alcem ia 15 - 65 < 8.6 Not Available [facility] ([facility]) [address] [place], [address], 02/28/2023 14:11:44 02/28/20 23 02/28/2023 CA+PT H INTAC T PTH, intact 19 pg/mL 15-65 Not Available [facility]) [address] [place], [address], 02/28/2023 14:11:44 02/28/20 23 02/28/2023 TSH TSH 0.744 uIU/m L 0.450- 4.500 Not Available [facility] ([facility]) [address] [place], [address], 02/28/2023 14:11:45 02/28/20 23 02/28/2023 CREAT INE KINAS E,TOT AL creatine kinase,total 39 U/L 32-182 Not Available [facility]) [address] [place], [address], 02/28/2023 14:11:45 02/28/20 23 02/28/2023 IMMUN OGLOB ULIN G, QN, SERUM immunoglobul in g, qn, serum 722 mg/dL 586-16 02 Not Available [facility] ([facility]) [address] [place], [address], 02/28/2023 14:11:46 02/28/20 23 02/28/2023 IMMUN OGLOB ULIN A, QN, SERUM immunoglobul in A, qn, serum 220 mg/dL 87-352 Not Available [facility]) [address] [place], [address], 02/28/2023 14:11:46 02/28/20 23 02/28/2023 IMMUN OGLOB ULIN M, QN, SERUM immunoglobul in M, qn, serum 39 mg/dL 26-217 Not Available [facility]) [address] [facility] [place], [place], [address], 02/28/2023 14:11:47 02/28/20 23 02/28/2023 MIRYAM TIN ferritin 28 NG/mL 15-150 Not Available [facility] ([facility]) [address] [facility] [place], [place], [address], 02/28/2023 14:11:48 02/28/2002/27/2023 AMBIG ABBRE V CMP14 DEFAU LT ambig abbrev CMP14 default COMMEN T A hand- writt en panel /prof ile was recei chandrika from your offic e. In accor dance with the [facility] Ambig uous Test Code Polic y dated December 2002, we have compl eted your order by using the close st curre ntly or forme rly recog nized AMA panel . We have assyue wang Compr ehens octavia Metab olic Panel (14), Test Code #32[address]. If this is not the testi ng you wishe d to recei ve on this speci men, pleas e conta ct the [facility] Clien t Inqui ry/Te chnic al Servi kiran Depar tment to cedrick fy the test order . We appre ciate your busin ess. Not Available [facility] ([facility]) [address] [facility] [place], [place], [address], 02/28/2023 14:11:48 02/28/2002/27/2023 AMBIG ABBRE V LP DEFAU LT ambig abbrev LP default COMMEN T A hand- writt en panel /prof ile was recei chandrika from your offic e. In accor dance with the [facility] Ambig uous Test Code Polic y dated December 2002, we have compl eted your order by using the close st curre ntly or forme rly recog nized AMA panel . We have julien wang Lipid Panel , Test Code #3037 [address]. If this is not the testi ng you wishe d to recei ve on this speci men, pleas e conta ct the [facility] Clien t Inqui ry/Te chnic al Servi kiran Depar tment to cedrick fy the test order . We appre ciate your busin ess. Not Available [facility] ([facility]) [address] [facility] [place], [place], [address], 02/28/2023 14:11:49 Result Notes None recorded. 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 NUNU Rodriguez [address], [address], [place], [address], [employer] 3 12:13:30 Common variable agammaglobu linemia 89798286 Active 2022 NUNU Rodriguez [address], [address], [place], [address], [employer] 3 12:14:42 Fibromyalgi a 269476214 Active 2022 NUNU Rodriguez [address], [address], [place], [address], [employer] 3 12:16:32 Rheumatoid arthritis 35642074 Active 2022 NUNU Rodriguez [address], [address], [place], [address], [employer] 3 12:16:53 Hyperparath yroidism 61550666 Active 2022 NUNU Rodriguez [address], [address], [place], [address], [employer] 3 12:19:32 Essential hypertensio n 96170108 Active 2022 NUNU Rodriguez [address], [address], [place], [address], [employer] 3 12:22:24 Hyperlipide fernando 64319351 Active 2022 NUNU Rodriguez [address], [address], [place], [address], [employer] 3 12:27:17 High hemoglobin A1c level 772570540 Active 2022 NUNU Rodriguez [address], [address], [place], [address], [employer] 3 12:28:29 Vitamin D below reference range 903829309 Active 2022 NUNU Rodriguez [address], [address], [place], [address], [employer] 3 12:29:45 Iron deficiency 75976423 Active 2022 NUNU Rodriguez [address], [address], [place], [address], [employer] 3 12:30:24 Screening for malignant neoplasm of breast Active 2022 NUNU Rodriguez [address], [address], [place], [address], [employer] 3 12:32:43 Osteopenia 771803256 Active 2022 NUNU Rodriguez [address], [address], [place], [address], [employer] 3 12:34:04 Migraine 51982218 Active 2022 NUNU Rodriguez [address], [address], [place], [address], [employer] 3 12:38:44 Chronic low back pain 031716062 Active 2022 NUNU Rodriguez [address], [address], [place], [address], [employer] 3 12:43:23 Insomnia 497155980 Active 2022 NUNU Rodriguez [address], [address], [place], [address], [employer] 3 12:46:55 Onychomycos is 740272928 Active 2022 NUNU Rodriguez [address], [address], [place], [address], [employer] 3 12:09:13 Obese 615398278 Active 2023 NUNU Rodriguez [address], [address], [place], [address], [employer] 4 16:31:15 Asthma 173426638 Active 2023 NUNU Rodriguez [address], [place], [address], [employer] 4 16:33:00 Herpes labialis 3625901 Active 2023 NUNU Rodriguez [address], [address], [place], [address], [employer] 4 16:37:46 Notes:Some problems listed i n Document: #[id number] could not be added to this patient's chart. Please review this document and add these problems to the patient's chart manually as needed. Problem Notes None recorded. Procedures Surgical History Date Name Laterality Status Provider Name and Address Organization Details Recorded Time Tubal Ligation completed Anne-Marie Rawls MA [employer] 01/18/2023 11:34:32 parathyroidectomy completed Norah Rawls MA [facility] 01/18/2023 11:34:40 Gallbladder Surgery completed Renate Rawls MA [facility] 01/18/2023 11:35:12 Cyst Removal completed Anne-Marie Rawls MA [facility] 01/18/2023 11:35:36 loop electrosurgical excision procedure completed Anne-Marie Rawls MA [facility] 01/18/2023 11:35:59 Lasik completed Anne-Marie Rawls MA [facility] 01/18/2023 11:36:19 Imaging Results None recorded. Procedure Notes None recorded. Medical Equipment None Reported. Allergies Allergen ID Allergen Name Allergen Category Reaction Reaction Severity Criticality Documentation Date Start Date Code Code System Note Provider Name and Address Organization Details Recorded Time 68119 Keflex medicatio n Not available Not available Not available 01/18/2023 76637 7 RxNorm [facility] 11:24[facility]05 11573 codeine medicatio n hives Not available [facility] 01/18/2023 2670 RxNorm [facility] 11:24:56 36266 cultivate d mushroom extract food Not available Not available Not available 01/18/2023 48574 17 RxNorm [facility] 11:25:30 75487 red dye food,medi cation itching Not available Not available 01/18/2023 UNK #[id number] NUNU Rodriguez [address] [facility], [facility] [address], [place], [address] [place] [address] 12:24:14 Medications Name Sig Start Date Stop Date Status Note LastModified by Organization Details LastModified Time cyclobenza james 10 mg tablet 1 to 2 tabs po at bedtime as needed active Not Available Not Available No t Available amoxicilli n 500 mg capsule TAKE 1 CAPSULE BY MOUTH EVERY 8 HOURS UNTIL ALL ARE GONE 03/26 completed Not Available Not Available Not Available methocarba mol 500 mg tablet 01/21 completed Not Available Not Available Not Available prednisolo ne sodium phosphate 15 mg/5 mL (3 mg/mL) oral solution TAKE 20 ML BY MOUTH ONCE DAILY WITH FOOD active Not Available Not Available No t Available lisinopril 20 mg-hydroch lorothiazi de 12.5 mg tablet 01/21 completed Not Available Not Available Not Available ibuprofen 800 mg tablet TAKE 1 TABLET BY MOUTH THREE TIMES DAILY WITH MEALS active Not Available Not Available No t Available fluconazol e 150 mg tablet TK 1 T PO ONCE. DO NOT TAKE WHILE TAKING LEVAQUIN BECAUSE OF POTENTIA L FOR INTERACT ION 01/21 completed Not Available Not Available Not Available benzonatat e 200 mg capsule TK ONE C PO TID 01/21 completed Not Available Not Available Not Available valacyclov ir 1 gram tablet Take 1 tablet every 12 hours by oral route. active Not Available Not Available No t Available sumatripta n 100 mg tablet TAKE 1 TABLET BY MOUTH AT ONSET. MAY REPEAT IN 2 HOURS. NO MORE THAN 2 TABLETS IN ANY 24 HOUR PERIOD. active refill needed Not Available Not Available Not Available phenazopyr idine 200 mg tablet TAKE 1 TABLET BY MOUTH THREE TIMES DAILY NEEDED FOR PAIN 01/18 completed Not Available Not Available Not Available lisinopril 20 mg tablet Take 1 tablet every day by oral route in the morning for 90 days. active Not Available Not Available No t Available prednisone 20 mg tablet TK 1 TS PO D FOR 5 DAYS as needed active Not Available Not Available No t Available tramadol 50 mg tablet 01/21 completed Not Available Not Available Not Available terbinafin e HCl 250 mg tablet Take 1 tablet by mouth once daily active Not Available Not Available No t Available hydrocodon e 7.5 mg-acetami nophen 325 mg tablet TK 1 T PO Q 6 H PRN P 01/21 completed Not Available Not Available Not Available triamcinol one acetonide 55 mcg nasal spray aerosol 01/21 completed Not Available Not Available Not Available lidocaine HCl 2 % mucosal solution SWISH AND SPIT 5 ML BY MOUTH EVERY 1 TO 2 HOURS NEEDED FOR PAIN active Not Available Not Available No t Available montelukas t 10 mg tablet 01/21 completed Not Available Not Available Not Available hydrochlor othiazide 25 mg tablet TAKE 1 TABLET BY MOUTH ONCE DAILY IN THE EVENING 2024 active Not Available Not Available Not Avai lable norethindr one acetate 5 mg tablet 01/21 completed Not Available Not Available Not Available levofloxac in 500 mg tablet TK 1 T PO D 01/21 completed Not Available Not Available Not Available methylpred nisolone 4 mg tablets in a dose pack USE DIRECTED 01/21 completed Not Available Not Available Not Available albuterol sulfate HFA 90 mcg/actuat ion aerosol inhaler Inhale 2 puffs every 8 hours by inhalati on route as needed for 30 days. active Not Available Not Available No t Available phentermin e 37.5 mg capsule Take 1 capsule every day by oral route in the morning for 30 days. 2023 active Not Available Not Available Not Avai lable amoxicilli n 875 mg-potassi um clavulanat e 125 mg tablet TAKE 1 TABLET BY MOUTH EVERY 12 HOURS FOR 10 DAYS active Not Available Not Available No t Available Microgesti n 07/01 (21) 1 mg-20 mcg tablet Take 1 tablet by mouth once daily active Not Available Not Available No t Available rosuvastat in 20 mg tablet TAKE 1 TABLET BY MOUTH ONCE DAILY IN THE MORNING 03/26 completed Not Available Not Available Not Available mirtazapin e 7.5 mg tablet TAKE 1 TABLET BY MOUTH ONCE DAILY AT BEDTIME active Not Available Not Available No t Available nitrofuran toin monohydrat e/macrocry stals 100 mg capsule TAKE 1 CAPSULE BY MOUTH EVERY 12 HOURS FOR 5 DAYS WITH FOOD 01/18 completed Not Available Not Available Not Available Dulera 100 mcg-5 mcg/actuat ion HFA aerosol inhaler Inhale 2 puffs twice a day by inhalati on route for 30 days. active Not Available Not Available No t Available Virtussin AC 10 mg-100 mg/5 mL oral liquid TK 5 ML PO Q 6 H PRN 01/21 completed Not Available Not Available Not Available Blisovi 24 Fe 1 mg-20 mcg (24)/75 mg (4) tablet TAKE 1 TABLET BY MOUTH EVERY DAY 01/18 completed Not Available Not Available Not Available Vitals Date Recorded Body height Body mass index (BMI) Body weight Body temperature Heart rate Oxygen saturation Oxygen saturation in Arterial blood by Pulse oximetry Systolic blood pressure Diastolic blood pressure Provider Name and Address Organization Details Last Updated DateTime 3 162.56 cm 29.5 kg/m2 02018.8 9 g 98.2 [degF] 92 /min 97 % 97 % 132 mm[Hg] 88 mm[Hg] Anne-Marie Rawls MA [facility] [employer] [facility] 3 11:23:52 Date Recorded Body height Body mass index (BMI) Body weight Body temperature Heart rate Oxygen saturation Oxygen saturation in Arterial blood by Pulse oximetry Systolic blood pressure Diastolic blood pressure Provider Name and Address Organization Details Last Updated DateTime 3 162.56 cm 30 kg/m2 49023.6 6 g 98.1 [degF] 97 /min 98 % 98 % 146 mm[Hg] 88 mm[Hg] Anne-Marie Rawls MA [facility] [employer] [facility] 3 10:58:32 Date Recorded Body height Body mass index (BMI) Body weight Body temperature Heart rate Oxygen saturation Oxygen saturation in Arterial blood by Pulse oximetry Systolic blood pressure Diastolic blood pressure Provider Name and Address Organization Details Last Updated DateTime 3 162.56 cm 30.7 kg/m2 52500.0 3 g 98.1 [degF] 98 /min 99 % 99 % 122 mm[Hg] 88 mm[Hg] Anne-Marie Rawls MA [facility] [employer] 3 12:07:11 Date Recorded Body height Body mass index (BMI) Body weight Body temperature Heart rate Oxygen saturation Oxygen saturation in Arterial blood by Pulse oximetry Systolic blood pressure Diastolic blood pressure Provider Name and Address Organization Details Last Updated DateTime 4 162.56 cm 34.3 kg/m2 13605.4 7 g 98.1 [degF] 84 /min 96 % 96 % 128 mm[Hg] 74 mm[Hg] Josseline Joseph RN [facility] [employer] [facility] 4 16:13:36 Social History Question Answer Notes LastModified by Organizat ion Details LastModified Time Tobacco Smoking Status Former Smoker Guadalupe singer [facility] [employer] [facility] 02/15/2023 10:49:33 What Is Your Level Of Alcohol Consumption? Occasional [email or web address] Information not available 01/18/2023 What Is Your Level Of Caffeine Consumption? Occasional Information not available 01/18/2023 When Did You Quit Smoking? 1-5yearssincel astcigarette Information not available 02/15/2023 Do You Use Your Seat Belt Or Car Seat Routinely? Yes [email or web address] Information not available 02/15/2023 Do You Participate In Social Media? Yes [email or web address] Information not available 02/15/2023 Do You Feel Stressed (tense, Restless, Nervous, Or Anxious, Or Unable To Sleep At Night)? [id number] [email or web address] Information not available 02/15/2023 Do You Use Any Illicit Or Recreational Drugs? Yes Edibles [email or web address] Information not available 02/15/2023 Have You Used IV Drugs? No [email or web address] Information not available 02/15/2023 Sex: Unknown Functional Status None recorded. Mental Status None recorded. Family History Relationship Description Onset Age of this Age Resolved Age Notes LastModified by Organization Details LastModified Time Mother Carcinoma in situ of lung [email or web address] Not available 0 01/18/2023 11:30:35 Mother Carcinoma in situ of breast [email or web address] Not available 02/2023 11:30:58 Medical History No medical history recorded. Gynecological HistoryNo gynecological history recorded. 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 Fibromyalgia 547475533 M 79.7 Rheumatoid arthritis 698 15891 M06.9 Hyperparathyroidism 6699 9008 E21.3 Essential hypertension 37472458 I10 Hyperlipidemia 56627639 E78.5 High hemog lobin A1c level 198884770 R73.09 Vitamin D below reference range 659181626 E55.9 Iron deficiency 98147296 E61.1 Screening for malignant neoplasm of breast 588517451 Z12.39 Osteopenia 283878186 M85 .80 Migraine 45343429 G43.90 9 Chronic low back pain 27 7081326 M54.50 Insomnia 145377234 G47.0 0 [id number] NUNU Rodriguez [facility] [address] [place] [address] [place] [address] 02/15/2023 10:48:57 02/15/2023 11:33:23 Insomnia 980585029 G47.00 [id number] NUNU Rodriguez [facility] [address] [place] [address] [place] [address] 05/12/2023 11:55:57 05/12/2023 12:26:10 Onychomycosis 896737684 B35.1 Chronic low back pain 27 9358359 M54.50 [id number] NUNU Rodriguez [facility] [address] [place] [address] [place] [address] 03/26/2024 15:50:56 03/26/2024 16:47:49 Obese 738350423 E66.9 Onychomycosis 218992012 B35.1 Essential hypertension 80339155 I10 Hyperlipidemia 05233601 E78.5 High hemog lobin A1c level 370352497 R73.09 Herpes labialis 5010366 B00.1 Rheumatoid arthritis 698 83971 M06.9 Chronic low back pain 27 0576727 M54.50 Asthma 635960863 J45.90 9 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 Vitamin D below reference range 992436636 E55.9 Health Concerns Section Related Observation LastModified by Organization Detai ls LastModified Time None Recorded Concern Status LastModified by Organization Details LastModified Time None Recorded Advance Directives Directive None Recorded Payers Encounter Date Sequence Insurance Name Policy Number Policy Lance Covered Member ID Lance Member ID Guarantor Name 01/18/2023 1 [facility] (MEDICAID REPLACEMENT - O) [id number] Lucila Jimenez [id number] Lucial Tiwari Behrhorst 02/15/2023 1 [facility] HMO) [id number] Lucila Tiwari Barbara [id number] Lucila Tiwari Behrhorst 05/12/2023 1 [facility]ICAID [facility]PLAC[facility] - HMO) [id number] Lucila Tiwari [place] [id number] Lucila Tiwari Behrhorst 03/26/2024 1 [facility] (MEDICAID REPLACEMENT - HMO) [id number] Lucila Tiwari [place] [id number] Lucila Tiwair Behrhorst Notes Date Note Type Note Provider Name and Address Organization Details Recorded Time 01/18/2023 text/html headaches, back of head , then moves to parietal area after 10 am for month, excedrin migraine takes it down. Rapid Resolution Therapy in September. worst season allergy: Spring , summer , Fall. NUNU Rodriguez [address], [place], [address], [employer] 01/18/2023 16:35:02 02/15/2023 text/html she will recheck BP at home NUNU Rodriguez [address], [place], [address], [employer] 02/16/2023 12:11:27 05/12/2023 text/html thick , ugly toenails NUNU Rodriguez [address], [place], [address], [employer] 05/20/2023 16:52:57 03/26/2024 text/html gaining weight . NUNU Rodriguez [address], [place], [address], [employer] 04/20/2024 15:58:03 OBGyn Episode No OBEpisode recorded.
[2024-09-08 20:20] VITALS: BP 155/99; PULSE 97; RESP 18; TEMP 36.3; O2SAT 100
[2024-09-08 22:27] VITALS: BP 164/149; PULSE 76; RESP 18; O2SAT 9
--- NOTE | 2024-09-08 22:30 | PC.NURSE ---
pt states that she took 25 Units of ozempic/ semiglutide injection instead of correct dose of 0.25 units. patient states she took the on 09/06/24 between 7307-7926. pt states she called her exchange and left a message with her pcp about her medication error. pt states that since monday she has had increased nausea/ vomiting/ pain in her rectum/ appetite changes. this rn contacted poison control.
--- NOTE | 2024-09-08 22:33 | PC.NURSE ---
this rn spoke with Jean Claude Arellano from posion control that states peak is 72 hours and supportive care. pt may experience nausea vomiting and need iv fluids. patient may have some severe constipation.
[2024-09-08 22:35] LABS: Basophils Absolute Auto 0.1 K/mm3 (0.0-0.1); Basophils Percent Auto 0.6 % (0.2-1.2); Eosinophils Absolute Auto 0.1 K/mm3 (0-0.3); Eosinophils Percent Auto 1.3 % (0-4.4); Hematocrit 39.9 % (37.0-47.0); Hemoglobin 13.6 g/dL (12.0-15.0); Immature Granulocyte Absolute 0.02 K/mm3 (0.00-0.031); Immature Granulocyte Percent A 0.2 % (0-0.5); Lymphocytes Absolute Auto 1.42 K/mm3 (0.9-3.2); Lymphocytes Percent Auto 17.4 % (18.3-44.2); Mean Corpuscular HGB Conc 34.1 g/dl (32-36); Mean Corpuscular Hemoglobin 29.9 pg (26-34); Mean Corpuscular Volume 87.7 fl (80-100); Mean Platelet Volume 9.8 fl (7.4-10.4); Monocytes Absolute Auto 0.6 K/mm3 (0.1-0.6); Monocytes Percent Auto 7.6 % (2.6-8.5); Neutrophils Percent Auto 72.9 % (45.5-73.1); Platelet Count Result 433 k/mm3 (150-375); Red Blood Count 4.55 M/mm3 (4.2-5.4); Red Cell Distribution Width 12.5 % (11.5-14.5); White Blood Count 8.2 K/mm3 (4.5-10.0)
[2024-09-08 22:39] VITALS: BP 153/89; PULSE 78; RESP 16; O2SAT 99
[2024-09-08] MEDS: ONDANSETRON INJ 4 MG/2 ML VIAL IV PUSH (22:40)
[2024-09-08] MEDS: SODIUM CHLORIDE 0.9% IV 1,000 ML 999 ML IV CONT ×2 (22:40)
[2024-09-08 22:41] LABS: Add Urine Microscopic? YES; Appearance Urine Cloudy (Clear); Bacteria Urine Rare /hpf; Bilirubin Urine Negative (Negative); Blood Urine Negative (Negative); Color Urine Dark Yellow (Yellow); Glucose Urine UA Negative (Negative); Ketones Urine 1+ mg/dL (Negative); Leukocyte Esterase Ur 1+ LEU/UL (Negative); Nitrate Urine Negative (Negative); Non Pathogenic Casts 0-2; Protein Urine 1+ mg/dL (Negative); Squamous Epithelial Cell Urine Many /hpf (Few)
[2024-09-08 22:50] LABS: Alanine Aminotransferase 26 U/L (6-35); Alkaline Phosphatase 86 U/L (38-126); Anion Gap 9 mmol/L (4-12); Aspartate Amino Transferase 27 U/L (14-36); Bilirubin,Total 0.9 mg/dL (0.2-1.3); Blood Urea Nitrogen 14 mg/dL (7-17); Calcium 9.1 mg/dL (8.4-10.2); Carbon Dioxide 29 mmol/L (22-30); Chloride 97 mmol/L (98-107); Estimated CRCL calculation 75 ml/min; Estimated Glomerular Filt Rate > 60; Glucose 101 mg/dL (65-110); Lipase 66 U/L (23-300); Sodium 135 mmol/L (137-145)
--- OUTSIDE RECORDS SUMMARY | 2024-09-08 23:21 | XMS_ITS | Clinical Summary ---
Author Organization [facility] Address [address] [place] [address] Care Team Providers Care Sales Closer Name Role Phone Jorge Alberto Mcgowan MD Primary Care Provider [phone] Jey Branham MD Unavailable [phone] Yony Gonzales MD Unavailable [phone] Source Comments [facility],non-owned Affiliates and Associated Physician Practices is amultiple site organization consisting of ambulatory clinics and hospital sitesin [place], [place] and [place]. This disclosure is being madepursuant to the Care Everywhere program and may not contain all information available regarding this patient. Last updated 18.[facility] Allergies Active Allergy Reactions Criticality Noted Date [...] fluticasone propionate (FLONASE) 50 MCG/ACT nasal spray [place] 2 sprays into each nostril 2 times [...] Comments Blood Pressure 140/81 06/06/2018 9:07 AM ACQUISITION MARKETING COORDINATOR Pulse 109 06/06/2018 9:07 AM ACQUISITION MARKETING COORDINATOR Temperature 36.9 C (98.5 F) 05/22/2018 8:09 AM ACQUISITION MARKETING COORDINATOR Respiratory Rate 18 05/22/2018 8:09 AM ACQUISITION MARKETING COORDINATOR Oxygen Saturation 99% 05/22/2018 8:09 AM ACQUISITION MARKETING COORDINATOR Inhaled Oxygen Concentration - - Weight 81.2 kg (179 lb) 06/06/2018 9:07 AM ACQUISITION MARKETING COORDINATOR Height 160 cm (5' 3 ) 06/06/2018 9:07 AM ACQUISITION MARKETING COORDINATOR Body Mass Index 31.71 06/06/2018 9:07 AM ACQUISITION MARKETING COORDINATOR Plan of Treatment Health Maintenance Due Date [...] POINT OF CARE Routine 05/22/2018 6:38 AM ACQUISITION MARKETING COORDINATOR from Last 3 Months or Most Recently Relevant to Health Maintenance Results * GLUCOSE - POINT OF CARE (05/22/2018 6:38 AM ACQUISITION MARKETING COORDINATOR) Glucose WB/POC 73 70 - 115 mg/dL 05/22/2018 6:47 AM ACQUISITION MARKETING COORDINATOR [facility] Specimen Type Arterial/C apillary 05/22/2018 6:47 AM ACQUISITION MARKETING COORDINATOR [facility] Blood BLOOD SPECIMEN / Unknown 05/22/2018 6:38 AM ACQUISITION MARKETING COORDINATOR 05/22/2018 6:47 AM ACQUISITION MARKETING COORDINATOR Narrative [facility] - 05/22/2018 6:47 AM ACQUISITION MARKETING COORDINATOR Ribber: FRANTZ MURRIETA Leroy Arteaga MD LAB - POINT OF CARE ORDERABLES Performing Organization Address City/State/[facility] Co de Phone Number [address] [phone] from Last 3 Months or Most Recently Relevant to Health Maintenance Advance Directives * Full Code (Latest Code Status on File) Date Activated Date Inactivated Comments 05/21/2018 5:55 PM 05/22/2018 11:43 AM * Full Code Date Activated Date Inactivated Comments 05/21/2018 6:58 AM 05/21/2018 5:55 PM Care Teams Sales Closer Relationship Specialty Start Date End Date Jorge Alberto Mcgowan MD [address] [place] [address] PCP - General 02/22/18 Jey Branham MD [address] [place] [address] Physician Medical Oncology 03/07/18 Yony Gonzales MD [address] [place] [address] Physician Allergy and Immunology 03/07/18
--- OUTSIDE RECORDS SUMMARY | 2024-09-08 23:21 | XMS_ITS | Clinical Summary ---
Author Organization [facility] Address [address] [facility] [place] [address] Care Team Providers Care Service Order Dispatcher Name Role Phone Kelvin Aguilar Primary Care Provider [phone] Allergies Active Allergy Reactions Criticality Noted Date [...] times daily. Active fluticasone (FLONASE) 50 mcg/spray [place], Suspension Administer 2 Sprays in each nostril daily. Active viatamin B complex-vitami n V-[id number] n-folic acid 106 mg iron- 1 mg [...] CDT Respiratory Rate 20 07/31/2019 9:09 AM CARD HANGER Oxygen Saturation 97% 02/13/2020 8:57 AM CDT [...] Most Recently Relevant to Health Maintenance Insurance [employer] PPO [id number] Care Teams Service Order Dispatcher Relationship Specialty Start Date End Date Kelvin Aguilar DO [address] [facility] [address] [place] [address] PCP - General Internal Medicine 12/28/18
[2024-09-09] MEDS: HYDROmorphone HCL INJ (*CRX) 1 MG/ML SYR IV PUSH (00:35)
[2024-09-09] MEDS: POTASSIUM CHLORIDE 20 MEQ PACKET (FOR LIQUID) 40 MEQ PO (00:36)
--- NOTE | 2024-09-09 00:40 | PC.NURSE ---
this rn spoke with QUINN Roberts from Posion control to give update on patient.
[2024-09-09 01:47] VITALS: PULSE 72; RESP 18; O2SAT 98
[2024-09-09] MEDS: DICYCLOMINE HCL INJ 20 MG/2 ML VIAL IM (01:51)
[2024-09-09] MEDS: MAG HYDROX/AL HYDROX/SIMETH 30 ML UDC PO (01:51)
[2024-09-09 01:52] VITALS: BP 158/95
--- NOTE | 2024-09-09 01:55 | ED.GENADULT ---
HPI - General Adult General Chief complaint: Nausea/Vomiting/Diarrhea Stated complaint: Abd pain, N/V-since yesterday Time Seen by Provider: 09/08/24 22:22 History of Present Illness HPI narrative: This is a 53-year-old female presenting for nausea vomiting and rectal pain. Patient is concerned that she overdosed on her semiglutide after taking 25 units instead of 5 units 2 days ago. Patient denies fever or chills. She has not been having copious amounts of diarrhea. Denies chest pain or difficulty breathing. Related Data Home Medications ?Medication ?Instructions ?Recorded ?Confirmed ?Last Taken ?Type fluticasone propionate 50 2 spray intranasal DAILY 04/03/19 09/03/22 Unknown History mcg/actuation nasal spray,suspension omeprazole 20 mg capsule,delayed 20 mg PO DAILY 04/03/19 09/03/22 Unknown History release cholecalciferol (vitamin D3) 1,250 1,250 mcg PO WEEKLY 04/09/20 09/03/22 Unknown History mcg (50,000 unit) tablet cetirizine 10 mg capsule (Allergy 10 mg PO DAILY PRN Allergy Symptoms 10/25/21 09/03/22 Unknown History Relief (cetirizine)) Allergies Allergy/AdvReac Type Severity Reaction Status Date / Time cephalexin Allergy Unknown Anaphylactic Verified 01/12/23 07:49 Shock Cephalosporins Allergy Unknown Anaphylaxis Verified 01/12/23 07:49 codeine Allergy Unknown Itching Verified 01/12/23 07:49 guaifenesin Allergy Unknown Itching Verified 01/12/23 07:49 sulfamethizole Allergy Unknown Nausea Verified 01/12/23 07:49 sulfamethoxazole Allergy Unknown Nausea and Verified 01/12/23 07:49 Vomiting trimethoprim Allergy Unknown Nausea Verified 01/12/23 07:49 clarithromycin AdvReac Intermediate Nausea/vomi Verified 01/12/23 07:49 ting PMFSH Past Medical History Medical History Flu-like symptoms Close exposure to COVID-19 virus Low back pain Screening for breast cancer Fatigue Shift work sleep disorder Osteoarthritis delivery delivered Surgical History Surgical History H/O parathyroidectomy (~05/2018) H/O tubal ligation (~06/2011) History of cholecystectomy Family History Family History Mother Diabetes mellitus Hypertension Family history of mental disorder Depression Asthma Sibling Diabetes mellitus Depression Asthma Family history of gynecological problem Family history of mental disorder Family history of attention deficit hyperactivity disorder (ADHD) Father Family history of elevated blood lipids Family history of cardiovascular disease Family history of colonic diverticulitis Hypertension Cerebrovascular accident Grandparent Family history of malignant neoplasm of breast in first degree relative Other Family history of allergic disorder Family history of malignant neoplasm Social History Social History Smoking packs per day: 0.25 Smoking cigarettes per day: 5.0 Years smoked: 25 Smoking pack-years: 6.25 Smoking status: Former smoker Tobacco type: cigarettes Second hand tobacco smoke exposure: Yes Smoking end date: 06/12/11 Alcohol intake: never Substance use: never Substance use type: does not use Gender identity (if verbalized by the patient): Female Exam Narrative: APPEARANCE: No apparent distress. Head: atraumatic. EYES: EOMI, NOSE: Atraumatic NECK: Trachea midline RESPIRATORY: No increased rate of breathing CTAB CARDIOVASCULAR: RRR, no peripheral edema ABDOMINAL: Non-distended soft nontender no guarding or rebound MUSCULOSKELETAl: No obvious deformities NEURO: Alert. Moving 4/4 extremities SKIN:: Warm, dry. Normal color PSYCHIATRIC: Normal affect Course Vital Signs Vital signs: Vital Signs Temperature 97.3 F L 09/08/24 20:20 Pulse Rate 97 09/08/24 20:20 Respiratory Rate 18 09/08/24 20:20 Blood Pressure 155/99 H 09/08/24 20:20 Pulse Oximetry 100 09/08/24 20:20 Oxygen Delivery Room Air 09/08/24 20:20 Temperature 97.3 F L 09/08/24 20:20 Pulse Rate 72 09/09/24 01:47 Respiratory Rate 18 09/09/24 01:47 Blood Pressure 158/95 H 09/09/24 01:52 Pulse Oximetry 98 09/09/24 01:47 Oxygen Delivery Room Air 09/08/24 20:20 Medical Decision Making MDM Narrative Medical decision making narrative: -Course: 53-year-old female presenting with nausea vomiting and rectal pain several days after taking an accidental 25unit (x5 normal dose) of semaglutide. Patient was given supportive measures. Poison Control was contacted said that the medication he can about [address] abdomen pelvis was ordered due to tenesmus. Patient has colitis. No fevers. No white count. Patient will be discharged with supportive measures and return precautions. -DDX includes but is not limited to: Medication overdose, gastroenteritis, colitis, diverticulitis, appendicitis, UTI Vital Signs Vital Signs: Vital Signs Temperature 97.3 F L 09/08/24 20:20 Pulse Rate 97 09/08/24 20:20 Respiratory Rate 18 09/08/24 20:20 Blood Pressure 155/99 H 09/08/24 20:20 Pulse Oximetry 100 09/08/24 20:20 Oxygen Delivery Room Air 09/08/24 20:20 Temperature 97.3 F L 09/08/24 20:20 Pulse Rate 72 09/09/24 01:47 Respiratory Rate 18 09/09/24 01:47 Blood Pressure 158/95 H 09/09/24 01:52 Pulse Oximetry 98 09/09/24 01:47 Oxygen Delivery Room Air 09/08/24 20:20 Lab Data 09/08/24 22:23 09/08/24 22:23 Labs: Lab Results 09/08/24 09/08/24 Range/Units 22:22 22:23 WBC 8.2 (4.5-10.0) K/mm3 RBC 4.55 (4.2-5.4) M/mm3 Hgb 13.6 (12.0-15.0) g/dL Hct 39.9 (37.0-47.0) % MCV 87.7 (80-100) fl MCH 29.9 (26-34) pg MCHC 34.1 (32-36) g/dl RDW 12.5 (11.5-14.5) % Plt Count 433 H (150-375) k/mm3 MPV 9.8 (7.4-10.4) fl Immature Gran % (Auto) 0.2 (0-0.5) % Neut % (Auto) 72.9 (45.5-73.1) % Lymph % (Auto) 17.4 L (18.3-44.2) % [place] % (Auto) 7.6 (2.6-8.5) % Eos % (Auto) 1.3 (0-4.4) % Baso % (Auto) 0.6 (0.2-1.2) % Lymph # (Auto) 1.42 (0.9-3.2) K/mm3 [place] # (Auto) 0.6 (0.1-0.6) K/mm3 Eos # (Auto) 0.1 (0-0.3) K/mm3 Baso # (Auto) 0.1 (0.0-0.1) K/mm3 Abs Immat Gran (auto) 0.02 (0.00-0.031) K/mm3 Absolute Neuts (auto) 6.0 (1.3-6.7) K/mm3 Absolute Nucleated RBC 0.000 (0.0-0.012) K/mm3 Nucleated RBC % 0.0 (0.0-0.2) % Sodium 135 L (137-145) mmol/L Potassium 3.0 L (3.4-5.0) mmol/L Chloride 97 L (98-107) mmol/L Carbon Dioxide 29 (22-30) mmol/L Anion Gap 9 (4-12) mmol/L BUN 14 (7-17) mg/dL Creatinine 0.79 (0.7-1.0) mg/dL Estim Creat Clear Calc 75 ml/min Estimated GFR > 60 (59 - ) Glucose 101 (65-110) mg/dL Calcium 9.1 (8.4-10.2) mg/dL Total Bilirubin 0.9 (0.2-1.3) mg/dL AST 27 (14-36) U/L ALT 26 (6-35) U/L Alkaline Phosphatase 86 (38-126) U/L Total Protein 7.0 (6.3-8.2) g/dL Albumin 4.0 (3.5-5.1) g/dL Lipase 66 (23-300) U/L Urine Color Dark yellow (Yellow) Urine Appearance Cloudy H (Clear) Urine pH 6.0 (5.0-9.0) Ur Specific [place] 1.030 (1.001-1.035) Urine Protein 1+ H (Negative) mg/dL Urine Glucose (UA) Negative (Negative) mg/dL Urine Ketones 1+ H (Negative) mg/dL Ur Blood (Man) Negative (Negative) Urine Nitrate Negative (Negative) Urine Bilirubin Negative (Negative) Urine Urobilinogen 1.0 (<2.0) mg/dL Leukocyte Esterase Rfl 1+ H (Negative) CHELI/UL Urine RBC 3-5 H (0-2) /hpf Urine WBC 11-20 H (0-3) /hpf Ur Squamous Epith Cells Many H (Few) /hpf Urine Bacteria Rare /hpf Urine Casts 0-2 Discharge Plan Discharge Clinical Impression: Colitis, Accidental drug overdose Patient Disposition: Home, Self-Care Condition: Stable Instructions: Abdominal Pain (ED), Colitis (ED) Additional Instructions: You were seen in the emergency department for colitis. Use Motrin Tylenol for pain. Use Zofran for nausea. Use Bentyl for abdominal cramping. Return to the ED if you develop fevers, severe abdominal pain, bloody diarrhea, or intractable nausea vomiting. Patient Language: Yoruba Prescriptions: New ibuprofen 800 mg tablet 800 mg PO TID PRN (Reason: pain) 7 Days Qty: 21 0RF ondansetron 4 mg tablet,disintegrating 4 mg PO Q8H PRN (Reason: nausea and vomiting) Qty: 30 0RF dicyclomine 10 mg capsule 10 mg PO TID Qty: 30 0RF acetaminophen 500 mg tablet 1,000 mg PO TID PRN (Reason: jagjit) 7 Days Qty: 42 0RF No Action nitrofurantoin monohyd/m-cryst [Macrobid] 100 mg capsule 100 mg PO Q12H 5 Days Qty: 10 0RF Rx Instructions: must administer with a meal/food phenazopyridine [Pyridium] 200 mg tablet 200 mg PO TID PRN (Reason: pain) Qty: 14 0RF omeprazole 20 mg Capsule,Delayed Release(Dr/Ec) 20 mg PO DAILY fluticasone propionate 50 mcg/actuation [place],Suspension 2 spray INTRANASAL DAILY cholecalciferol (vitamin D3) 1,250 mcg (50,000 unit) Tablet 1,250 mcg PO WEEKLY Rx Instructions: pt takes on mondays cyclobenzaprine 10 mg tablet See Rx Instructions .ROUTE .COMPLEX Qty: 30 0RF Dose Instruction: TAKE 1 TABLET BY MOUTH EVERY DAY AT BEDTIME NEEDED FOR MUSCLE SPASM Rx Instructions: TAKE 1 TABLET BY MOUTH EVERY DAY AT BEDTIME NEEDED FOR MUSCLE SPASM Allergy Relief (cetirizine) 10 mg capsule 10 mg PO DAILY PRN (Reason: Allergy Symptoms) albuterol sulfate 90 mcg/actuation HFA aerosol inhaler 2 puff inhalation Q4H PRN (Reason: shortness of breath or wheezing) Qty: 8.5 1RF Restasis 0.05 % dropperette 1 drp OPHTHALMIC (EYE) Q12H Qty: 60 3RF Junel Fe 24 1 mg-20 mcg (24)/75 mg (4) tablet 1 tablet PO DAILY Qty: 84 0RF valacyclovir 1 gram tablet 1,000 mg PO DAILY PRN (Reason: cold sores) Qty: 30 1RF lisinopril 20 mg tablet See Rx Instructions .ROUTE .COMPLEX Qty: 60 2RF Dose Instruction: TAKE 1 TABLET BY MOUTH TWICE A DAY Rx Instructions: TAKE 1 TABLET BY MOUTH TWICE A DAY hydrochlorothiazide 25 mg tablet See Rx Instructions .ROUTE .COMPLEX Qty: 90 0RF Dose Instruction: TAKE 1 TABLET BY MOUTH EVERY DAY Rx Instructions: TAKE 1 TABLET BY MOUTH EVERY DAY Follow-up/Referrals: Leonel,NUNU Plata [Primary Care Provider] -
[2024-09-09 02:25] VITALS: BP 144/85; PULSE 72; RESP 16; O2SAT 99
[2024-09-09 03:17] VITALS: BP 138/93; PULSE 71; RESP 16; O2SAT 98
== END 2024-09-09 04:07 | disposition home or self-care (01) ==
PROVIDERS: Emergency Provider Emergency Medicine; PCP Physician Assistant
DX: K52.9 Noninfective gastroenteritis and colitis, unspecified (principal); T50.991A Poisoning by other drugs, medicaments and biological substances, accidental (unintentional), initial encounter; M19.90 Unspecified osteoarthritis, unspecified site; Z90.89 Acquired absence of other organs; Z90.49 Acquired absence of other specified parts of digestive tract; Z87.891 Personal history of nicotine dependence; Z79.899 Other long term (current) drug therapy; Z79.01 Long term (current) use of anticoagulants
CPT/HCPCS: 36415; 74177; 80053; 81001; 83690; 85025; 96361; 96372; 96374; 96375; 99284; A9270; J0500; J1171; J2405; J7030; Q9967